=== PATIENT | male | born 1945 | race African-American/Black ===

== ENCOUNTER → 2020-05-06 | Outpatient (CLI) | payer MEDICARE, MEDICAID ==
[2020-05-06 10:16] LABS: Basophils # (auto) 0 10 ^3/uL (0-0.2); Basophils % (auto) 1.1 % (0.0-2.0); Eosinophils # (auto) 0 10 ^3/uL (0-0.8); Hemoglobin 15.3 g/dL (13.5-17.5); Lymphocytes # (auto) 1.2 10 ^3/uL (0.4-5.4); Lymphocytes % (auto) 38.8 % (10.0-50.0); Mean Corpuscular Hemoglobin 31.5 pg (28.0-32.0); Mean Corpuscular Hgb Conc. 33.3 g/dL (32.0-36.0); Mean Corpuscular Volume 94.4 fL (80.0-100.0); Monocytes # (auto) 0.3 10 ^3/uL (0-1.3); Monocytes % (auto) 9.6 % (0.0-12.0); Neutrophils # (auto) 1.5 10 ^3/uL (1.6-8.6); Neutrophils % (auto) 49.5 % (37.0-80.0); Nucleated Red Blood Cells % 0.1 %; Platelet Count (auto) 229 10^3/uL (140-450); Red Blood Cells 4.87 10^6/uL (4.5-5.90); White Blood Cell 3.1 10^3/uL (4.4-10.8)
[2020-05-06 10:28] LABS: Urine Bacteria NONE SEEN /hpf (None Seen); Urine Blood 1+ /uL (Negative); Urine Hyaline Cast FEW /lpf (0 - 2); Urine Mucus FEW (None Seen); Urine Specific Gravity 1.028 (1.001-1.035); Urine WBC 3 /hpf (0 - 3)
[2020-05-06 10:38] LABS: Free T4 (Free Thyroxine) 0.88 ng/dL (0.89-1.76); Prostate Specific Antigen 2.58 ng/mL (0.0-4.0)
[2020-05-06 10:39] LABS: Calcium 9.1 mg/dL (8.5-10.1); Folate (Folic Acid) 12.86 ng/mL (5.38-24)
[2020-05-06 10:45] LABS: BUN/Creatinine Ratio 11.9; Bilirubin, Total 0.6 mg/dL (0.2-1.0); Total Protein 7.5 g/dL (6.4-8.2)
== END | disposition home or self-care (01) ==
LOC: LAB 09:17
PROVIDERS: ATTEND Internal Medicine
DX: Z12.5 Encounter for screening for malignant neoplasm of prostate (principal); I10 Essential (primary) hypertension; R73.03 Prediabetes; M79.10 Myalgia, unspecified site
CPT/HCPCS: 36415; 80053; 80061; 81001; 82306; 82607; 82746; 83036; 84153; 84439; 84443; 85025

== ENCOUNTER → 2020-08-11 | Outpatient (CLI) | payer MEDICARE, MEDICAID | END | disposition home or self-care (01) | LOC: LAB 09:56 | PROVIDERS: ATTEND Student in an Organized Health Care Education/Training Program | DX: E03.9 Hypothyroidism, unspecified (principal) | CPT/HCPCS: 36415; 84439; 84443 ==

== ENCOUNTER → 2020-09-20 | Outpatient (CLI) | payer MEDICARE, MEDICAID ==
[~2020-09-20] VITALS: Ht 157.5 cm; Wt 81.6 kg
[~2020-09-20] MED LIST: ADENOSINE 69 MG in GIVE UN-DILUTED 0 ML IV STA
[2020-09-20 10:35] VITALS: BP 181/93
== END | disposition home or self-care (01) ==
LOC: XY 08:15
PROVIDERS: ATTEND Internal Medicine
DX: R00.1 Bradycardia, unspecified (principal); R60.0 Localized edema; I50.9 Heart failure, unspecified; I50.810 Right heart failure, unspecified
CPT/HCPCS: 93017; J0153

== ENCOUNTER → 2020-11-18 | Outpatient (CLI) | payer MEDICARE, MEDICAID | END | disposition home or self-care (01) | LOC: XYW 11:09 | PROVIDERS: ATTEND Internal Medicine | DX: I08.0 Rheumatic disorders of both mitral and aortic valves (principal); M62.89 Other specified disorders of muscle; I11.9 Hypertensive heart disease without heart failure | CPT/HCPCS: 93306 ==

== ENCOUNTER → 2021-01-13 | Outpatient (CLI) | payer MEDICARE, MEDICAID ==
[~2021-01-13] MED LIST changes: -ADENOSINE 69 MG in GIVE UN-DILUTED 0 ML IV STA; +ALLO100T PO; +AML5T PO; +FLUT1SPR5; +FURO20TA3 PO; +HYDR-4795 PO; +POTA10TA51 PO; +TAMS0.4C36 PO
[2021-01-13 09:10] LABS: Basophils # (auto) 0.1 10 ^3/uL (0-0.2); Eosinophils # (auto) 0 10 ^3/uL (0-0.8); Eosinophils % (auto) 0.5 % (0.0-7.0); Hematocrit 37.8 % (41.0-53.0); Hemoglobin 12.6 g/dL (13.5-17.5); Lymphocytes # (auto) 0.7 10 ^3/uL (0.4-5.4); Lymphocytes % (auto) 25.2 % (10.0-50.0); Mean Corpuscular Hemoglobin 32.2 pg (28.0-32.0); Mean Corpuscular Hgb Conc. 33.3 g/dL (32.0-36.0); Mean Corpuscular Volume 96.5 fL (80.0-100.0); Monocytes # (auto) 0.3 10 ^3/uL (0-1.3); Neutrophils # (auto) 1.7 10 ^3/uL (1.6-8.6); Neutrophils % (auto) 62.3 % (37.0-80.0); Red Blood Cells 3.91 10^6/uL (4.5-5.90); Red Cell Distribution Width 15.5 % (11.8-14.3); White Blood Cell 2.8 10^3/uL (4.4-10.8)
[2021-01-13 09:24] LABS: INR 1.08 (0.9-1.15); Partial Thromboplastin Time 26.7 sec (23.6-33.0)
[2021-01-13 09:25] LABS: Albumin 3.7 g/dL (3.4-5.0); Calcium 8.7 mg/dL (8.5-10.1); Potassium 3.9 mmol/L (3.5-5.1)
[2021-01-13 09:29] LABS: BUN/Creatinine Ratio 20.7; Bilirubin, Total 0.7 mg/dL (0.2-1.0); Total Protein 6.8 g/dL (6.4-8.2)
== END | disposition home or self-care (01) ==
LOC: LAB 08:54
PROVIDERS: ATTEND Internal Medicine
DX: Z01.812 Encounter for preprocedural laboratory examination (principal); I50.9 Heart failure, unspecified
CPT/HCPCS: 36415; 80053; 85025; 85610; 85730

== ENCOUNTER 2021-01-18 07:16 | Day surgery (SDC) | payer MEDICARE, MEDICAID ==
[~2021-01-18] VITALS: Ht 162.6 cm; Wt 95.3 kg
[2021-01-18] MEDS ORDERED: LIDOCAINE 2%HCL (LOCAL ANESTH.) INJ 20ML MDV ONE ×2 (07:33→09:52)
[2021-01-18] MEDS ORDERED: HEPARIN IN NS 1000Units/500mL 0 ML ONE (07:33)
[2021-01-18] MEDS ORDERED: IODIXANOL 320MG/ML 100ML BTL IV ONE (07:33)
[2021-01-18] MEDS ORDERED: fentaNYL CITRATE 100 MCG/2 ML VL ONE ×2 (08:12→09:53)
[2021-01-18] MEDS ORDERED: ANGIOMAX 250 MG VIAL IV ONE (08:12)
[2021-01-18] MEDS ORDERED: MIDAZOLAM HCL 2MG/2ML 2ml VIAL (1mg/ml) ONE ×2 (08:12→09:53)
[2021-01-18] MEDS ORDERED: HEPARIN SODIUM (PORCINE) 5000 UNITS/ML 1ML VIAL ONE (08:13)
[2021-01-18] MEDS ORDERED: SODIUM CHL 0.9% 0 ML ONE (08:13)
[2021-01-18] MEDS ORDERED: VERAPAMIL 2.5MG/ML INJ 2ML VIAL IV ONE (08:13)
[2021-01-18] MEDS ORDERED: NITROGLYCERIN 5MG/ML 10ML VIAL IV ONE (08:28)
[2021-01-18] MEDS ORDERED: ATROPINE SULF 1 MG/10ml SYR ONE (08:53)
[2021-01-18] MEDS ORDERED: VANCOMYCIN 1GM/250ML 250 ML IV ONE (09:50)
[2021-01-18] MEDS ORDERED: VANCOMYCIN HCL 1000 MG VL ONE ×2 (09:52→09:53)
[2021-01-18] MEDS ORDERED: POTA8TAB2 PO (10:01)
[2021-01-18] MEDS ORDERED: HYDROcodone-ACET 5/325MG TAB PO PRN (11:45)
[2021-01-18] MEDS ORDERED: ACETAMINOPHEN 325 MG TAB PO PRN (11:45)
[2021-01-18] MEDS ORDERED: MORPHINE SULFATE INJECTION 2 MG/ML SYRG IV PRN (11:45)
[2021-01-18] MEDS ORDERED: SODIUM CHLORIDE 0.9% 1,000 ML IV SCH (11:45)
[2021-01-18] MEDS ORDERED: NITROGLYCERIN 0.4 MG SL TAB SL PRN (11:45)
[2021-01-18] MEDS ORDERED: HYDROcodone-ACET 7.5/325MG TAB PO PRN (13:00)
[2021-01-18] MEDS ORDERED: TRAM50TA2 PO (15:19)
[2021-01-18] MEDS ORDERED: APIX5TAB4 PO (15:19)
[2021-01-18] MEDS ORDERED: TAMSULOSIN HYDROCHLORIDE 0.4 MG CAP PO SCH (18:00)
[2021-01-18] MEDS ORDERED: APIXABAN 5 MG TAB PO SCH (22:00)
[2021-01-19] MEDS ORDERED: FUROSEMIDE 20 MG TAB PO SCH (07:00)
[2021-01-19] MEDS ORDERED: amLODIPine BESYLATE 5 MG TAB PO SCH (07:00)
[2021-01-19] MEDS ORDERED: POTASSIUM CHLORIDE 8 MEQ TAB PO SCH (07:00)
[2021-01-19] MEDS ORDERED: FLUTICASONE PROP NASAL SPR 0.05 % (50MCG) 16GM SCH (10:00)
[2021-01-19] MEDS ORDERED: ALLOPURINOL 100 MG TAB PO SCH (10:00)
== END 2021-01-18 16:55 | disposition home or self-care (01) ==
LOC: CATH 07:16 → UNDOADMIN 12:15 → TELE 12:15 → CATH 16:55
PROVIDERS: ATTEND Internal Medicine
DX: I44.39 Other atrioventricular block (principal); I49.5 Sick sinus syndrome; I48.19 Other persistent atrial fibrillation; R00.2 Palpitations; I25.10 Atherosclerotic heart disease of native coronary artery without angina pectoris; I10 Essential (primary) hypertension; R68.89 Other general symptoms and signs; Z79.82 Long term (current) use of aspirin; Z20.822 Contact with and (suspected) exposure to COVID-19; Z98.890 Other specified postprocedural states; Z79.899 Other long term (current) drug therapy; Z68.36 Body mass index [BMI] 36.0-36.9, adult
CPT/HCPCS: 33207; 71045; 93005; 93458; 93571; C1786; C1887; C1892; C1894; C1898; J1644; J2250; J3010; J3370; Q9967; U0003; 99152; 99153; J3490

== ENCOUNTER 2021-09-30 12:51 | Emergency (ER) | payer MEDICARE, MEDICAID ==
[~2021-09-30] VITALS: Ht 152.4 cm; Wt 90.7 kg
[~2021-09-30 12:51] MED LIST changes: +APIX5TAB4 PO; -HYDR-4795 PO; -POTA10TA51 PO; +POTA8TAB2 PO; +TRAM50TA2 PO
[2021-09-30] MEDS ORDERED: LIDOCAINE 1% HCL (LOCAL ANESTH.) INJ 20ML MDV ONE (13:35)
[2021-09-30] MEDS ORDERED: TETANUS-DIPTH-ACEL PERTUSSIS 0.5ML SYR Tdap IM ONE (13:45)
[2021-09-30] MEDS ORDERED: DOXYCYCLINE 100 MG TAB/CAP PO ONE (13:45)
[2021-09-30] MEDS ORDERED: LIDOCAINE 1% HCL (LOCAL ANESTH.) INJ 20ML MDV ID ONE (13:45)
[2021-09-30] MEDS ORDERED: NEOMYCIN-BACITRACIN-POLYM 15GM TOP OINT TOP ONE (14:23)
[2021-09-30] MEDS ORDERED: HYDR-4902 PO (16:15)
[2021-09-30] MEDS ORDERED: DOXY-286 PO (16:15)
[2021-09-30] MEDS ORDERED: ACET650T12 PO (16:15)
[2021-09-30 16:20] VITALS: BP 122/80
== END 2021-09-30 16:36 | disposition home or self-care (01) ==
LOC: EDUNIT# 12:51 → ER 12:51 → EDBD 12:51 → ER 16:36
DX: S81.811A Laceration without foreign body, right lower leg, initial encounter (principal); I10 Essential (primary) hypertension; W26.8XXA Contact with other sharp object(s), not elsewhere classified, initial encounter; Y93.89 Activity, other specified; Y92.89 Other specified places as the place of occurrence of the external cause; Y99.8 Other external cause status
CPT/HCPCS: 12002; 90471; 90715; 93971; 99284; J2001

== ENCOUNTER 2022-03-08 20:50 | Inpatient (IN) | payer MEDICARE, MEDICAID ==
[~2022-03-08] VITALS: Ht 172.7 cm; Wt 112.2 kg
[~2022-03-08 20:50] MED LIST changes: +ACET650T12 PO; +DOXY-286 PO; +HYDR-4902 PO
[2022-03-08 23:34] LABS: Basophils # (auto) 0 10 ^3/uL (0-0.2); Eosinophils # (auto) 0 10 ^3/uL (0-0.8); Eosinophils % (auto) 0.6 % (0.0-7.0); Hematocrit 33.5 % (41.0-53.0); Hemoglobin 10.8 g/dL (13.5-17.5); Lymphocytes # (auto) 0.3 10 ^3/uL (0.4-5.4); Lymphocytes % (auto) 9.4 % (10.0-50.0); Mean Corpuscular Hemoglobin 29.4 pg (28.0-32.0); Mean Corpuscular Hgb Conc. 32.3 g/dL (32.0-36.0); Mean Corpuscular Volume 90.8 fL (80.0-100.0); Monocytes # (auto) 0.3 10 ^3/uL (0-1.3); Neutrophils # (auto) 2.8 10 ^3/uL (1.6-8.6); Red Blood Cells 3.68 10^6/uL (4.5-5.90); Red Cell Distribution Width 15.9 % (11.8-14.3); White Blood Cell 3.4 10^3/uL (4.4-10.8)
[2022-03-09 00:32] LABS: BUN/Creatinine Ratio 21.9; Potassium 3.8 mmol/L (3.5-5.1)
[2022-03-09 00:33] LABS: Albumin 2.8 g/dL (3.4-5.0); Bilirubin, Total 0.6 mg/dL (0.2-1.0); Calcium 8.3 mg/dL (8.5-10.1); Total Protein 6.6 g/dL (6.4-8.2)
[2022-03-09] MEDS ORDERED: HYDROmorphone HCL 2 MG/ML VL/or syr IV ONE (05:30)
[2022-03-09] MEDS: cefTRIAXone 1GM/50ML D5W 50 ML IV ONE ×2 (06:11→06:52)
[2022-03-09] MEDS: AZITHROMYCIN 500MG/ 250ML 250 ML IV ONE ×2 (06:11→06:53)
[2022-03-09] MEDS ORDERED: MORPHINE SULFATE INJ 2 MG/ml SYRG IV PRN ×2 (06:15→06:30)
[2022-03-09] MEDS ORDERED: ALBUMIN 25% 100 ML IV ONE (06:15)
[2022-03-09] MEDS ORDERED: hydrALAZINE HCL 20 MG/ML VL IV PRN (06:15)
[2022-03-09] MEDS ORDERED: ONDANSETRON HCL 4 MG/2 ML VIAL IV PRN (06:15)
[2022-03-09] MEDS ORDERED: DOCUSATE SOD 100 MG CAP PO PRN ×2 (06:15→07:30)
[2022-03-09] MEDS ORDERED: ACETAMINOPHEN 325 MG TAB PO PRN (06:15)
[2022-03-09] MEDS ORDERED: HYDROcodone-ACET 5/325MG TAB PO PRN (06:15)
[2022-03-09] MEDS ORDERED: NITROGLYCERIN 0.4 MG SL TAB SL PRN (06:30)
[2022-03-09 09:24] LABS: Basophils # (auto) 0 10 ^3/uL (0-0.2); Basophils % (auto) 1.3 % (0.0-2.0); Eosinophils # (auto) 0 10 ^3/uL (0-0.8); Eosinophils % (auto) 0.9 % (0.0-7.0); Hematocrit 36.4 % (41.0-53.0); Hemoglobin 11.4 g/dL (13.5-17.5); Lymphocytes # (auto) 0.6 10 ^3/uL (0.4-5.4); Lymphocytes % (auto) 16.8 % (10.0-50.0); Mean Corpuscular Hemoglobin 29.2 pg (28.0-32.0); Mean Corpuscular Hgb Conc. 31.2 g/dL (32.0-36.0); Mean Corpuscular Volume 93.6 fL (80.0-100.0); Monocytes # (auto) 0.3 10 ^3/uL (0-1.3); Monocytes % (auto) 9.1 % (0.0-12.0); Neutrophils # (auto) 2.4 10 ^3/uL (1.6-8.6); Neutrophils % (auto) 71.9 % (37.0-80.0); Nucleated Red Blood Cells % 0.1 %; Red Blood Cells 3.89 10^6/uL (4.5-5.90); Red Cell Distribution Width 16.6 % (11.8-14.3); White Blood Cell 3.3 10^3/uL (4.4-10.8)
[2022-03-09 09:45] LABS: Albumin 3.2 g/dL (3.4-5.0); Calcium 8.6 mg/dL (8.5-10.1); INR 1.13 (0.9-1.15); Partial Thromboplastin Time 31.6 sec (24.6-33.4); Potassium 4.1 mmol/L (3.5-5.1)
[2022-03-09 09:49] LABS: BUN/Creatinine Ratio 19.4; Bilirubin, Total 0.8 mg/dL (0.2-1.0); Total Protein 6.6 g/dL (6.4-8.2)
[2022-03-09 10:22] LABS: Urine Bacteria NONE SEEN /hpf (None Seen); Urine Blood Negative /uL (Negative); Urine Specific Gravity 1.031 (1.001-1.035); Urine WBC 1 /hpf (0 - 3)
[2022-03-09] MEDS: APIXABAN 5 MG TAB PO SCH ×2 (10:52→22:05)
[2022-03-09] MEDS: amLODIPine BESYLATE 5 MG TAB PO SCH (10:52)
[2022-03-09] MEDS: FUROSEMIDE 20 MG/2 ML VIAL IV SCH (10:53)
[2022-03-09] MEDS: FAMOTIDINE (10MG/ML) 2ML VL IV SCH ×2 (10:53→22:04)
[2022-03-09] MEDS ORDERED: LACTULOSE 20Gm/30ML SOLN PO PRN (11:15)
[2022-03-09] MEDS: SODIUM CHLOR 0.9% PF (SALINE LOCK) 10ML VIAL/SYR IV SCH ×2 (14:00→22:04)
[2022-03-09] MEDS: TAMSULOSIN HYDROCHLORIDE 0.4 MG CAP PO SCH (18:00)
[2022-03-09 20:15] VITALS: BP 147/76
[2022-03-09 21:04] VITALS: BP 147/76
[2022-03-10 04:10] LABS: Basophils # (auto) 0 10 ^3/uL (0-0.2); Basophils % (auto) 1.1 % (0.0-2.0); Eosinophils # (auto) 0 10 ^3/uL (0-0.8); Eosinophils % (auto) 1.2 % (0.0-7.0); Hematocrit 33.8 % (41.0-53.0); Hemoglobin 10.7 g/dL (13.5-17.5); Lymphocytes # (auto) 0.7 10 ^3/uL (0.4-5.4); Lymphocytes % (auto) 20.3 % (10.0-50.0); Mean Corpuscular Hemoglobin 29.3 pg (28.0-32.0); Mean Corpuscular Hgb Conc. 31.5 g/dL (32.0-36.0); Mean Corpuscular Volume 92.9 fL (80.0-100.0); Monocytes # (auto) 0.4 10 ^3/uL (0-1.3); Monocytes % (auto) 12.7 % (0.0-12.0); Neutrophils # (auto) 2.1 10 ^3/uL (1.6-8.6); Neutrophils % (auto) 64.7 % (37.0-80.0); Nucleated Red Blood Cells % 0.1 %; Red Blood Cells 3.64 10^6/uL (4.5-5.90); Red Cell Distribution Width 16.1 % (11.8-14.3); White Blood Cell 3.3 10^3/uL (4.4-10.8)
[2022-03-10 04:36] LABS: Albumin 2.8 g/dL (3.4-5.0); Calcium 8.2 mg/dL (8.5-10.1); Potassium 4.2 mmol/L (3.5-5.1)
[2022-03-10 04:41] LABS: BUN/Creatinine Ratio 19.1; Bilirubin, Total 0.8 mg/dL (0.2-1.0); Total Protein 5.9 g/dL (6.4-8.2)
[2022-03-10 05:30] VITALS: BP 136/81
[2022-03-10] MEDS: SODIUM CHLOR 0.9% PF (SALINE LOCK) 10ML VIAL/SYR IV SCH ×3 (06:00→22:00)
[2022-03-10 08:30] VITALS: BP 155/84
[2022-03-10] MEDS: POLYETHYLENE GLYCOL 17 GM PWDR PO SCH (10:00)
[2022-03-10] MEDS: amLODIPine BESYLATE 5 MG TAB PO SCH (10:00)
[2022-03-10] MEDS: FUROSEMIDE 20 MG/2 ML VIAL IV SCH (10:00)
[2022-03-10] MEDS: FAMOTIDINE (10MG/ML) 2ML VL IV SCH ×2 (10:00→21:59)
[2022-03-10] MEDS: APIXABAN 5 MG TAB PO SCH ×2 (10:00→22:00)
[2022-03-10] MEDS: HALOPERIDOL 1 MG TAB PO PRN ×2 (11:53→21:02)
[2022-03-10 13:00] VITALS: BP 123/69
[2022-03-10] MEDS ORDERED: HALOPERIDOL LACTATE 5 MG/ML INJ VIAL IM ONE (17:15)
[2022-03-10] MEDS: TAMSULOSIN HYDROCHLORIDE 0.4 MG CAP PO SCH (17:54)
[2022-03-10 20:00] VITALS: BP 150/88
[2022-03-10 22:00] VITALS: BP 150/88
[2022-03-11 04:40] VITALS: BP 146/90
[2022-03-11] MEDS: SODIUM CHLOR 0.9% PF (SALINE LOCK) 10ML VIAL/SYR IV SCH ×3 (06:00→22:25)
[2022-03-11 08:00] VITALS: BP 145/83
[2022-03-11] MEDS: APIXABAN 5 MG TAB PO SCH ×2 (09:54→22:25)
[2022-03-11] MEDS: FAMOTIDINE (10MG/ML) 2ML VL IV SCH ×2 (09:54→22:24)
[2022-03-11] MEDS: FUROSEMIDE 20 MG/2 ML VIAL IV SCH (09:54)
[2022-03-11] MEDS: amLODIPine BESYLATE 5 MG TAB PO SCH (09:55)
[2022-03-11] MEDS: POLYETHYLENE GLYCOL 17 GM PWDR PO SCH (09:55)
[2022-03-11] MEDS: HALOPERIDOL 1 MG TAB PO PRN ×2 (09:58→18:10)
[2022-03-11 12:00] VITALS: BP 146/82
[2022-03-11 16:00] VITALS: BP 142/83
[2022-03-11] MEDS: TAMSULOSIN HYDROCHLORIDE 0.4 MG CAP PO SCH (17:49)
[2022-03-11 20:00] VITALS: BP 129/74
[2022-03-11 22:00] VITALS: BP 129/74
[2022-03-12] MEDS: HALOPERIDOL 1 MG TAB PO PRN (04:58)
[2022-03-12 05:00] VITALS: BP 135/74
[2022-03-12] MEDS: SODIUM CHLOR 0.9% PF (SALINE LOCK) 10ML VIAL/SYR IV SCH ×3 (06:12→22:20)
[2022-03-12 09:00] VITALS: BP 140/87
[2022-03-12] MEDS: amLODIPine BESYLATE 5 MG TAB PO SCH (09:29)
[2022-03-12] MEDS: POLYETHYLENE GLYCOL 17 GM PWDR PO SCH (09:29)
[2022-03-12] MEDS: APIXABAN 5 MG TAB PO SCH ×2 (09:30→22:19)
[2022-03-12] MEDS: FAMOTIDINE (10MG/ML) 2ML VL IV SCH ×2 (09:30→22:19)
[2022-03-12] MEDS: FUROSEMIDE 20 MG/2 ML VIAL IV SCH (09:30)
[2022-03-12] MEDS: TAMSULOSIN HYDROCHLORIDE 0.4 MG CAP PO SCH (17:33)
[2022-03-12] MEDS: Juven Orange Powder PACKET 27.5gm PO SCH (17:34)
[2022-03-12 20:00] VITALS: BP 121/72
[2022-03-13] MEDS: SODIUM CHLOR 0.9% PF (SALINE LOCK) 10ML VIAL/SYR IV SCH ×2 (05:36→14:19)
[2022-03-13] MEDS: Juven Orange Powder PACKET 27.5gm PO SCH (08:00)
[2022-03-13 09:00] VITALS: BP 146/76
[2022-03-13] MEDS: POLYETHYLENE GLYCOL 17 GM PWDR PO SCH (09:52)
[2022-03-13] MEDS: FAMOTIDINE (10MG/ML) 2ML VL IV SCH (09:52)
[2022-03-13] MEDS: FUROSEMIDE 20 MG/2 ML VIAL IV SCH (09:53)
[2022-03-13] MEDS: APIXABAN 5 MG TAB PO SCH (09:53)
[2022-03-13] MEDS: amLODIPine BESYLATE 5 MG TAB PO SCH (09:54)
[2022-03-13] MEDS ORDERED: LACT10SO3 PO (12:58)
[2022-03-13 13:00] VITALS: BP 142/72
[2022-03-13 14:28] VITALS: BP 146/76
[2022-03-13 17:00] VITALS: BP 133/76
== END 2022-03-13 18:00 | disposition home or self-care (01) | DRG 391 ==
LOC: EDBD 20:50 → ER 20:50 → TELE 03-09 06:30 → TELE-CENTR 03-09 20:00
PROVIDERS: ADMIT Nurse Practitioner Family; ATTEND Internal Medicine
PROC: 05H933Z Insertion of Infusion Device into Right Brachial Vein, Percutaneous Approach (ICD-10-PCS; principal; 2022-03-10)
PROC: B54MZZA Ultrasonography of Right Upper Extremity Veins, Guidance (ICD-10-PCS; 2022-03-10)
DX: K59.00 Constipation, unspecified (principal); G93.41 Metabolic encephalopathy; E87.0 Hyperosmolality and hypernatremia; E88.09 Other disorders of plasma-protein metabolism, not elsewhere classified; F03.90 Unspecified dementia, unspecified severity, without behavioral disturbance, psychotic disturbance, mood disturbance, and anxiety; I11.9 Hypertensive heart disease without heart failure; Z20.822 Contact with and (suspected) exposure to COVID-19; I25.10 Atherosclerotic heart disease of native coronary artery without angina pectoris; I25.2 Old myocardial infarction
CPT/HCPCS: 36415; 70450; 71045; 80053; 81001; 83690; 84484; 85025; 85610; 85730; 87426; 93005; 96365; 96375; G0378; J0696; J3490; P9047

== ENCOUNTER 2022-03-24 21:06 | Inpatient (IN) | payer OTHER, MEDICARE, MEDICAID ==
[~2022-03-24] VITALS: Ht 172.7 cm; Wt 89.3 kg
[~2022-03-24 21:06] MED LIST changes: +LACT10SO3 PO
[2022-03-24] MEDS ORDERED: DEXTROSE 50% SYRINGE 50 ML IV ONE (21:22)
[2022-03-24] MEDS ORDERED: DEXTROSE 10% 1,000 ML IV ONE (21:30)
[2022-03-24] MEDS ORDERED: AZITHROMYCIN 500MG/ 250ML 250 ML IV ONE (21:30)
[2022-03-24] MEDS ORDERED: DEXTROSE (50%) 50ML SYRG IV ONE (21:30)
[2022-03-24] MEDS ORDERED: FUROSEMIDE 40 MG/4 ML VIAL IV ONE (21:30)
[2022-03-24] MEDS ORDERED: cefTRIAXone 1GM/50ML D5W 50 ML IV ONE (21:30)
[2022-03-24 22:26] LABS: Urine Bacteria NONE SEEN /hpf (None Seen); Urine Blood TRACE /uL (Negative); Urine Mucus FEW (None Seen); Urine Specific Gravity 1.013 (1.001-1.035); Urine WBC 5 /hpf (0 - 3)
[2022-03-24 22:52] LABS: Alcohol, Urine < 3.0 mg/dL (0-10); Amphetamine Screen, Urine NEGATIVE (NEGATIVE); Barbiturate Scree,Urine NEGATIVE (NEGATIVE); Benzodiazephine Screen, Urine NEGATIVE (NEGATIVE); Cannabinoid Screen, Urine NEGATIVE (NEGATIVE); Cocaine Screen, Urine NEGATIVE (NEGATIVE); Opiate Scree,Urine POSITIVE (NEGATIVE); Phencyclidine Screen, Urine NEGATIVE (NEGATIVE)
[2022-03-24 23:01] LABS: Albumin 2.6 g/dL (3.4-5.0); BUN/Creatinine Ratio 13.2; Calcium 8.4 mg/dL (8.5-10.1); Potassium 4.3 mmol/L (3.5-5.1)
[2022-03-24 23:12] LABS: Bilirubin, Total 1.4 mg/dL (0.2-1.0); Total Protein 6.3 g/dL (6.4-8.2)
[2022-03-24] MEDS ORDERED: HYDROcodone-ACET 5/325MG TAB PO PRN (23:30)
[2022-03-24] MEDS ORDERED: ACETAMINOPHEN 325 MG TAB PO PRN (23:30)
[2022-03-24] MEDS ORDERED: ONDANSETRON HCL 4 MG/2 ML VIAL IV PRN (23:30)
[2022-03-24] MEDS ORDERED: DOCUSATE SOD 100 MG CAP PO PRN (23:30)
[2022-03-24] MEDS ORDERED: hydrALAZINE HCL 20 MG/ML VL IV PRN (23:45)
[2022-03-25 00:33] LABS: Basophils # (auto) 0.1 10 ^3/uL (0-0.2); Basophils % (auto) 1.4 % (0.0-2.0); Eosinophils # (auto) 0.1 10 ^3/uL (0-0.8); Eosinophils % (auto) 2.5 % (0.0-7.0); Hemoglobin 12.3 g/dL (13.5-17.5); Lymphocytes # (auto) 0.4 10 ^3/uL (0.4-5.4); Lymphocytes % (auto) 6.7 % (10.0-50.0); Mean Corpuscular Hemoglobin 30.2 pg (28.0-32.0); Mean Corpuscular Hgb Conc. 33.2 g/dL (32.0-36.0); Monocytes # (auto) 0.4 10 ^3/uL (0-1.3); Monocytes % (auto) 6.9 % (0.0-12.0); Neutrophils # (auto) 4.3 10 ^3/uL (1.6-8.6); Neutrophils % (auto) 82.5 % (37.0-80.0); Nucleated Red Blood Cells % 0.1 %; Red Blood Cells 4.07 10^6/uL (4.5-5.90); Red Cell Distribution Width 15.7 % (11.8-14.3); White Blood Cell 5.3 10^3/uL (4.4-10.8)
[2022-03-25 05:04] LABS: Basophils # (auto) 0 10 ^3/uL (0-0.2); Eosinophils # (auto) 0 10 ^3/uL (0-0.8); Eosinophils % (auto) 0.8 % (0.0-7.0); Hematocrit 37.9 % (41.0-53.0); Hemoglobin 12.5 g/dL (13.5-17.5); Lymphocytes # (auto) 0.5 10 ^3/uL (0.4-5.4); Lymphocytes % (auto) 11.2 % (10.0-50.0); Mean Corpuscular Hemoglobin 29.8 pg (28.0-32.0); Mean Corpuscular Hgb Conc. 33.1 g/dL (32.0-36.0); Mean Corpuscular Volume 90.2 fL (80.0-100.0); Monocytes # (auto) 0.5 10 ^3/uL (0-1.3); Monocytes % (auto) 10.2 % (0.0-12.0); Neutrophils # (auto) 3.8 10 ^3/uL (1.6-8.6); Neutrophils % (auto) 76.8 % (37.0-80.0); Red Blood Cells 4.21 10^6/uL (4.5-5.90); Red Cell Distribution Width 15.6 % (11.8-14.3); White Blood Cell 4.9 10^3/uL (4.4-10.8)
[2022-03-25 05:19] LABS: Albumin 2.5 g/dL (3.4-5.0); BUN/Creatinine Ratio 15.7; Calcium 8.2 mg/dL (8.5-10.1)
[2022-03-25 05:21] LABS: Bilirubin, Total 1.3 mg/dL (0.2-1.0); Total Protein 6.7 g/dL (6.4-8.2)
[2022-03-25] MEDS: SODIUM CHLOR 0.9% PF (SALINE LOCK) 10ML VIAL/SYR IV SCH ×3 (06:01→22:12)
[2022-03-25] MEDS: ACCU-CHEK COMFORT CURVE STRIP VI SCH ×9 (06:36→23:25)
[2022-03-25] MEDS: InsuLIN REG 1unit/0.01ml Soln (100units/ml) SC SCH ×3 (06:36→17:00)
[2022-03-25] MEDS ORDERED: ALBUMIN 25% 100 ML IV ONE (08:15)
[2022-03-25] MEDS: FAMOTIDINE (10MG/ML) 2ML VL IV SCH ×2 (09:53→22:23)
[2022-03-25] MEDS: FUROSEMIDE 40 MG/4 ML VIAL IV SCH (09:53)
[2022-03-25] MEDS: ENOXAPARIN SOD 40 MG/0.4 ML SYRINGE SC SCH (09:53)
[2022-03-25] MEDS: DEXTROSE (50%) 50ML SYRG IV PRN ×3 (11:50→17:45)
[2022-03-25] MEDS: D5W/SOD CHL 0.45% 1,000 ML IV SCH (12:36)
[2022-03-25] MEDS: TAMSULOSIN HYDROCHLORIDE 0.4 MG CAP PO SCH (19:10)
[2022-03-25] MEDS ORDERED: LORazepam 2MG/ML-1ML VIAL IV PRN (19:15)
[2022-03-25 19:51] LABS: Cholesterol 156 mg/dL (< 200)
[2022-03-25 19:54] LABS: HDL Cholesterol 51 mg/dL (40-59); LDL Cholesterol 104 mg/dL (< 100); Triglycerides 72 mg/dL (< 150)
[2022-03-26] MEDS: ACCU-CHEK COMFORT CURVE STRIP VI SCH ×16 (00:30→22:23)
[2022-03-26] MEDS: DEXTROSE (50%) 50ML SYRG IV PRN ×5 (00:31→14:06)
[2022-03-26] MEDS: D5W/SOD CHL 0.45% 1,000 ML IV SCH (03:45)
[2022-03-26] MEDS: SODIUM CHLOR 0.9% PF (SALINE LOCK) 10ML VIAL/SYR IV SCH ×3 (06:09→22:23)
[2022-03-26] MEDS: FAMOTIDINE (10MG/ML) 2ML VL IV SCH ×2 (08:05→22:22)
[2022-03-26] MEDS: ENOXAPARIN SOD 40 MG/0.4 ML SYRINGE SC SCH (08:06)
[2022-03-26 09:03] LABS: Free T4 (Free Thyroxine) 1.17 ng/dL (0.89-1.76)
[2022-03-26 09:04] LABS: Folate (Folic Acid) > 24.00 ng/mL (5.38-24)
[2022-03-26] MEDS ORDERED: D5W/SOD CHL 0.45% 1,000 ML IV SCH (09:45)
[2022-03-26] MEDS: FUROSEMIDE 40 MG/4 ML VIAL IV SCH (10:19)
[2022-03-26 10:40] LABS: Basophils # (auto) 0 10 ^3/uL (0-0.2); Basophils % (auto) 0.9 % (0.0-2.0); Eosinophils # (auto) 0.1 10 ^3/uL (0-0.8); Eosinophils % (auto) 2.2 % (0.0-7.0); Hematocrit 37.6 % (41.0-53.0); Hemoglobin 12.4 g/dL (13.5-17.5); Lymphocytes # (auto) 0.5 10 ^3/uL (0.4-5.4); Lymphocytes % (auto) 15.5 % (10.0-50.0); Mean Corpuscular Hemoglobin 29.7 pg (28.0-32.0); Mean Corpuscular Hgb Conc. 32.9 g/dL (32.0-36.0); Mean Corpuscular Volume 90.2 fL (80.0-100.0); Monocytes # (auto) 0.4 10 ^3/uL (0-1.3); Monocytes % (auto) 10.7 % (0.0-12.0); Neutrophils # (auto) 2.5 10 ^3/uL (1.6-8.6); Neutrophils % (auto) 70.7 % (37.0-80.0); Nucleated Red Blood Cells % 0.1 %; Red Blood Cells 4.17 10^6/uL (4.5-5.90); Red Cell Distribution Width 15.6 % (11.8-14.3); White Blood Cell 3.5 10^3/uL (4.4-10.8)
[2022-03-26 10:57] LABS: Albumin 2.4 g/dL (3.4-5.0); Calcium 8.2 mg/dL (8.5-10.1); Magnesium 2.1 mg/dL (1.6-2.6); Potassium 3.4 mmol/L (3.5-5.1)
[2022-03-26 11:01] LABS: BUN/Creatinine Ratio 16.3; Bilirubin, Total 1.1 mg/dL (0.2-1.0); Total Protein 6.2 g/dL (6.4-8.2)
[2022-03-26] MEDS: DEXTROSE 10% 1,000 ML IV SCH (11:01)
[2022-03-26] MEDS ORDERED: Ensure HIGH Protein Chocolate 8oz Bottle PO SCH (12:00)
[2022-03-26] MEDS ORDERED: POTASSIUM CHLORIDE 40 MEQ, LIDOCAINE 1% (LOCAL ANESTH.) 4 ML in SODIUM CHL 0.9% 250 ML IV ONE (13:00)
[2022-03-26] MEDS: TAMSULOSIN HYDROCHLORIDE 0.4 MG CAP PO SCH (18:00)
[2022-03-26] MEDS: Glucerna Carbsteady SHAKE Stawberry 8oz PO SCH (18:01)
[2022-03-27] MEDS: ACCU-CHEK COMFORT CURVE STRIP VI SCH ×7 (00:26→20:23)
[2022-03-27] MEDS: DEXTROSE 10% 1,000 ML IV SCH ×2 (03:14→11:43)
[2022-03-27] MEDS: SODIUM CHLOR 0.9% PF (SALINE LOCK) 10ML VIAL/SYR IV SCH ×3 (06:02→22:18)
[2022-03-27] MEDS ORDERED: ACCU-CHEK COMFORT CURVE STRIP VI SCH (08:00)
[2022-03-27] MEDS: FUROSEMIDE 40 MG/4 ML VIAL IV SCH (08:21)
[2022-03-27] MEDS: FAMOTIDINE (10MG/ML) 2ML VL IV SCH ×2 (08:21→22:18)
[2022-03-27] MEDS: ENOXAPARIN SOD 40 MG/0.4 ML SYRINGE SC SCH (08:21)
[2022-03-27] MEDS: Glucerna Carbsteady SHAKE Stawberry 8oz PO SCH ×3 (08:22→18:00)
[2022-03-27 08:30] LABS: Basophils # (auto) 0.1 10 ^3/uL (0-0.2); Basophils % (auto) 1.3 % (0.0-2.0); Eosinophils # (auto) 0.1 10 ^3/uL (0-0.8); Eosinophils % (auto) 2.1 % (0.0-7.0); Hematocrit 37.1 % (41.0-53.0); Hemoglobin 12.3 g/dL (13.5-17.5); Lymphocytes # (auto) 0.7 10 ^3/uL (0.4-5.4); Lymphocytes % (auto) 16.6 % (10.0-50.0); Mean Corpuscular Hemoglobin 29.4 pg (28.0-32.0); Mean Corpuscular Hgb Conc. 33.1 g/dL (32.0-36.0); Monocytes # (auto) 0.5 10 ^3/uL (0-1.3); Monocytes % (auto) 11.5 % (0.0-12.0); Neutrophils # (auto) 2.7 10 ^3/uL (1.6-8.6); Neutrophils % (auto) 68.5 % (37.0-80.0); Nucleated Red Blood Cells % 0.1 %; Red Blood Cells 4.18 10^6/uL (4.5-5.90); Red Cell Distribution Width 15.4 % (11.8-14.3)
[2022-03-27 08:44] LABS: Albumin 2.5 g/dL (3.4-5.0); Calcium 8.3 mg/dL (8.5-10.1); Potassium 3.9 mmol/L (3.5-5.1)
[2022-03-27 08:48] LABS: BUN/Creatinine Ratio 16.7; Bilirubin, Total 0.8 mg/dL (0.2-1.0); Total Protein 6.2 g/dL (6.4-8.2)
[2022-03-27] MEDS ORDERED: DEXTROSE (50%) 50ML SYRG IV PRN (12:00)
[2022-03-27] MEDS ORDERED: cefTRIAXone 1GM/50ML D5W 50 ML IV ONE (12:30)
[2022-03-27 13:31] VITALS: BP 113/62
[2022-03-27 16:35] VITALS: BP 107/69
[2022-03-27] MEDS: TAMSULOSIN HYDROCHLORIDE 0.4 MG CAP PO SCH (17:41)
[2022-03-27] MEDS ORDERED: FUROSEMIDE 40 MG/4 ML VIAL IV ONE (18:30)
[2022-03-27 20:00] VITALS: BP 99/58
[2022-03-27 21:40] VITALS: BP 99/58
[2022-03-27] MEDS: CARVEDILOL 3.125 MG TAB PO SCH (22:00)
[2022-03-27] MEDS: APIXABAN 5 MG TAB PO SCH (22:18)
[2022-03-28] MEDS: HALOPERIDOL LACTATE 5 MG/ML INJ VIAL IM PRN ×2 (00:08→21:34)
[2022-03-28] MEDS: ACCU-CHEK COMFORT CURVE STRIP VI SCH ×7 (00:18→23:52)
[2022-03-28 04:56] VITALS: BP 109/58
[2022-03-28] MEDS: SODIUM CHLOR 0.9% PF (SALINE LOCK) 10ML VIAL/SYR IV SCH ×3 (06:07→23:36)
[2022-03-28] MEDS: FUROSEMIDE 40 MG/4 ML VIAL IV SCH ×3 (06:07→23:52)
[2022-03-28 08:00] VITALS: BP 99/58
[2022-03-28 08:23] VITALS: BP 130/60
[2022-03-28] MEDS: Glucerna Carbsteady SHAKE Stawberry 8oz PO SCH ×3 (09:02→19:43)
[2022-03-28] MEDS: cefTRIAXone 1GM/50ML D5W 50 ML IV SCH (09:05)
[2022-03-28] MEDS: FAMOTIDINE (10MG/ML) 2ML VL IV SCH (10:08)
[2022-03-28] MEDS: CARVEDILOL 3.125 MG TAB PO SCH ×2 (10:09→23:51)
[2022-03-28] MEDS: DEXTROSE 10% 1,000 ML IV SCH (10:09)
[2022-03-28] MEDS: APIXABAN 5 MG TAB PO SCH ×2 (10:09→23:35)
[2022-03-28 13:07] VITALS: BP 127/61
[2022-03-28 16:14] VITALS: BP 111/66
[2022-03-28] MEDS: TAMSULOSIN HYDROCHLORIDE 0.4 MG CAP PO SCH (19:38)
[2022-03-28] MEDS: MUPIROCIN 2% OINT 15gm or 22gm FOR MRSA NARES EACHNOSTRI SCH (23:35)
[2022-03-29 04:46] VITALS: BP 110/65
[2022-03-29] MEDS: ACCU-CHEK COMFORT CURVE STRIP VI SCH ×2 (05:00→08:54)
[2022-03-29] MEDS: SODIUM CHLOR 0.9% PF (SALINE LOCK) 10ML VIAL/SYR IV SCH (05:26)
[2022-03-29 06:06] LABS: Basophils # (auto) 0 10 ^3/uL (0-0.2); Basophils % (auto) 1.1 % (0.0-2.0); Eosinophils # (auto) 0.2 10 ^3/uL (0-0.8); Eosinophils % (auto) 5.6 % (0.0-7.0); Hematocrit 33.3 % (41.0-53.0); Hemoglobin 10.8 g/dL (13.5-17.5); Lymphocytes # (auto) 0.8 10 ^3/uL (0.4-5.4); Lymphocytes % (auto) 22.9 % (10.0-50.0); Mean Corpuscular Hemoglobin 28.9 pg (28.0-32.0); Mean Corpuscular Hgb Conc. 32.6 g/dL (32.0-36.0); Mean Corpuscular Volume 88.9 fL (80.0-100.0); Monocytes # (auto) 0.5 10 ^3/uL (0-1.3); Monocytes % (auto) 14.3 % (0.0-12.0); Neutrophils # (auto) 1.9 10 ^3/uL (1.6-8.6); Neutrophils % (auto) 56.1 % (37.0-80.0); Nucleated Red Blood Cells % 0.1 %; Red Blood Cells 3.74 10^6/uL (4.5-5.90); Red Cell Distribution Width 15.4 % (11.8-14.3); White Blood Cell 3.4 10^3/uL (4.4-10.8)
[2022-03-29 06:26] LABS: Calcium 8.1 mg/dL (8.5-10.1); Magnesium 2.2 mg/dL (1.6-2.6); Potassium 3.5 mmol/L (3.5-5.1)
[2022-03-29 06:29] LABS: BUN/Creatinine Ratio 34.8
[2022-03-29] MEDS: cefTRIAXone 1GM/50ML D5W 50 ML IV SCH (08:52)
[2022-03-29] MEDS: APIXABAN 5 MG TAB PO SCH (08:52)
[2022-03-29] MEDS: FUROSEMIDE 40 MG/4 ML VIAL IV SCH (08:53)
[2022-03-29] MEDS: CARVEDILOL 3.125 MG TAB PO SCH (08:53)
[2022-03-29] MEDS: Glucerna Carbsteady SHAKE Stawberry 8oz PO SCH (08:55)
[2022-03-29] MEDS: MUPIROCIN 2% OINT 15gm or 22gm FOR MRSA NARES EACHNOSTRI SCH (08:55)
[2022-03-29 08:57] VITALS: BP 99/68
[2022-03-29 12:40] VITALS: BP 107/57
== END 2022-03-29 15:45 | DRG 917 ==
LOC: EDBD 21:06 → ER 21:12 → TELE 23:32 → TELE-CENTR 03-27 10:45 → TELE-EAST 03-27 15:12
PROVIDERS: ADMIT Nurse Practitioner Family; ATTEND Internal Medicine
PROC: 06HM33Z Insertion of Infusion Device into Right Femoral Vein, Percutaneous Approach (ICD-10-PCS; principal; 2022-03-24)
DX: T40.2X1A Poisoning by other opioids, accidental (unintentional), initial encounter (principal); E43 Unspecified severe protein-calorie malnutrition; G92.8 Other toxic encephalopathy; J18.9 Pneumonia, unspecified organism; I50.43 Acute on chronic combined systolic (congestive) and diastolic (congestive) heart failure; N39.0 Urinary tract infection, site not specified; J91.8 Pleural effusion in other conditions classified elsewhere; E87.1 Hypo-osmolality and hyponatremia; E16.2 Hypoglycemia, unspecified; E88.09 Other disorders of plasma-protein metabolism, not elsewhere classified; Z20.822 Contact with and (suspected) exposure to COVID-19; F02.80 Dementia in other diseases classified elsewhere, unspecified severity, without behavioral disturbance, psychotic disturbance, mood disturbance, and anxiety; G30.9 Alzheimer's disease, unspecified; I11.0 Hypertensive heart disease with heart failure; I25.10 Atherosclerotic heart disease of native coronary artery without angina pectoris; K57.30 Diverticulosis of large intestine without perforation or abscess without bleeding; E78.5 Hyperlipidemia, unspecified; I48.0 Paroxysmal atrial fibrillation; N40.0 Benign prostatic hyperplasia without lower urinary tract symptoms; I25.2 Old myocardial infarction; Z68.25 Body mass index [BMI] 25.0-25.9, adult; Z82.49 Family history of ischemic heart disease and other diseases of the circulatory system; Z95.0 Presence of cardiac pacemaker; Y92.89 Other specified places as the place of occurrence of the external cause
CPT/HCPCS: 36415; 36600; 70450; 71250; 74176; 80048; 80053; 80061; 80307; 81001; 82533; 82607; 82746; 82805; 82962; 83605; 83735; 83880; 84132; 84439; 84443; 84484; 85025; 87040; 87081; 87086; 87088; 87186; 87426; 93005; 93306; 96365; 96367; 96375; 99291; G0378; J0696; J2001; J3490

== ENCOUNTER 2023-12-13 15:37 | Inpatient (IN) | payer MEDICARE, MEDICAID ==
[~2023-12-13] VITALS: Ht 165.1 cm; Wt 82.0 kg
[~2023-12-13 15:37] MED LIST changes: -POTA8TAB2 PO; +POTA8TAB38 PO
[2023-12-13 16:25] LABS: Basophils # (auto) 0 10 ^3/uL (0-0.2); Eosinophils # (auto) 0.1 10 ^3/uL (0-0.8); Eosinophils % (auto) 1.8 % (0.0-7.0); Hematocrit 44.4 % (41.0-53.0); Lymphocytes # (auto) 1.2 10 ^3/uL (0.4-5.4); Lymphocytes % (auto) 33.7 % (10.0-50.0); Mean Corpuscular Hemoglobin 31.1 pg (28.0-32.0); Mean Corpuscular Hgb Conc. 33.9 g/dL (32.0-36.0); Mean Corpuscular Volume 91.7 fL (80.0-100.0); Monocytes # (auto) 0.4 10 ^3/uL (0-1.3); Monocytes % (auto) 10.5 % (0.0-12.0); Neutrophils # (auto) 1.9 10 ^3/uL (1.6-8.6); Nucleated Red Blood Cells % 0.1 %; Red Blood Cells 4.84 10^6/uL (4.5-5.90); Red Cell Distribution Width 14.3 % (11.8-14.3); White Blood Cell 3.7 10^3/uL (4.4-10.8)
[2023-12-13 16:38] LABS: Chloride 110 mmol/L (98-107); Sodium 143 mmol/L (136-145)
[2023-12-13 16:39] LABS: Anion Gap 7 (5-15); Calcium 9.4 mg/dL (8.7-10.4); Carbon Dioxide 26 mmol/L (20-30)
[2023-12-13 16:44] LABS: BUN/Creatinine Ratio 22.2 (10.0-20.0); Blood Urea Nitrogen 28 mg/dL (9-23); Glucose 105 mg/dL (74-106)
[2023-12-13 17:06] VITALS: O2SAT 98
[2023-12-13 18:53] LABS: INR 1.13 (0.9-1.15); Partial Thromboplastin Time 29.1 SEC (24.5-34.5); Prothrombin Time 11.9 sec (9.3-11.8)
[2023-12-13 19:13] LABS: Urine Bacteria None Seen /hpf (None Seen)
[2023-12-13 19:28] LABS: Urine Blood TRACE /uL (Negative); Urine Clarity Clear (Clear); Urine Color Light-Yellow (Yellow); Urine Protein, UAD Negative (Negative); Urine Specific Gravity 1.013 (1.001-1.035); Urine Urobilinogen Normal (Negative); Urine WBC <1 /hpf (0 - 3); Urine pH 5.5 (5.0-9.0)
[2023-12-13] MEDS ORDERED: ONDANSETRON HCL 4 MG/2 ML VIAL IV PRN (20:45)
[2023-12-13] MEDS ORDERED: DOCUSATE SOD 100 MG CAP PO PRN (20:45)
[2023-12-13] MEDS: PANTOPRAZOLE 40 MG/10 ML VIAL INJ IV SCH (22:09)
[2023-12-13] MEDS: LACTATED RINGER'S 1,000 ML IV ONE (22:09)
[2023-12-13] MEDS: SODIUM CHLOR 0.9% PF (SALINE LOCK) 10ML VIAL/SYR IV SCH (22:09)
[2023-12-13] MEDS ORDERED: FLUTICASONE PROP NASAL SPR 0.05 % (50MCG) 16GM PRN (22:12)
[2023-12-14] VITALS (9 sets, daily range): BP systolic 101–122; BP diastolic 67–81; PULSE 69–72; RESP 16–18; TEMP 97.3–98.1; O2SAT 96–100
[2023-12-14] MEDS: amLODIPine BESYLATE 5 MG TAB PO SCH (06:08)
[2023-12-14] MEDS: FUROSEMIDE 20 MG TAB PO SCH (06:08)
[2023-12-14] MEDS: POTASSIUM CHLORIDE 8 MEQ TAB PO SCH (06:08)
[2023-12-14] MEDS: ALLOPURINOL 100 MG TAB PO SCH (13:00)
[2023-12-14] MEDS: TAMSULOSIN HYDROCHLORIDE 0.4 MG CAP PO SCH (18:06)
[2023-12-15] VITALS (8 sets, daily range): BP systolic 92–104; BP diastolic 59–69; PULSE 69–80; RESP 18–20; TEMP 97.5–98; O2SAT 95–100
[2023-12-15 07:05] LABS: Hematocrit 43.4 % (41.0-53.0); Hemoglobin 14.8 g/dL (13.5-17.5)
[2023-12-15 07:32] LABS: Anion Gap 12 (5-15); Carbon Dioxide 17 mmol/L (20-30); Chloride 109 mmol/L (98-107); Potassium 3.8 mmol/L (3.5-5.1); Sodium 138 mmol/L (136-145)
[2023-12-15 07:39] LABS: BUN/Creatinine Ratio 14.4 (10.0-20.0); Blood Urea Nitrogen 13 mg/dL (9-23); Glucose 81 mg/dL (74-106)
[2023-12-15] MEDS: ACETAMINOPHEN 325 MG TAB PO PRN (11:08)
[2023-12-16 01:00] VITALS: BP 103/62; PULSE 72; RESP 18; TEMP 97.5; O2SAT 99
[2023-12-16 05:00] VITALS: BP 108/64; PULSE 76; RESP 18; TEMP 97.6; O2SAT 98
[2023-12-16 08:00] VITALS: RESP 18; O2SAT 99
[2023-12-16 09:00] VITALS: BP 111/61; PULSE 79; RESP 18; TEMP 97.9; O2SAT 98
== END 2023-12-16 11:30 | DRG 377 ==
LOC: EDBD 15:37 → ER 15:37 → OVERFLOW 20:37 → WEST WING 12-14 03:30
PROVIDERS: ADMIT Internal Medicine; ATTEND Nurse Practitioner Acute Care
DX: K62.5 Hemorrhage of anus and rectum (principal); I50.23 Acute on chronic systolic (congestive) heart failure; I13.0 Hypertensive heart and chronic kidney disease with heart failure and stage 1 through stage 4 chronic kidney disease, or unspecified chronic kidney disease; F03.90 Unspecified dementia, unspecified severity, without behavioral disturbance, psychotic disturbance, mood disturbance, and anxiety; I25.10 Atherosclerotic heart disease of native coronary artery without angina pectoris; N18.31 Chronic kidney disease, stage 3a; E66.9 Obesity, unspecified; Z79.899 Other long term (current) drug therapy; Z79.891 Long term (current) use of opiate analgesic; Z82.49 Family history of ischemic heart disease and other diseases of the circulatory system; Z95.0 Presence of cardiac pacemaker; Z79.1 Long term (current) use of non-steroidal anti-inflammatories (NSAID); Z68.30 Body mass index [BMI] 30.0-30.9, adult
CPT/HCPCS: 36415; 74176; 80048; 81001; 82270; 82962; 83036; 84484; 85014; 85018; 85025; 85610; 85730; 96360; G0378; J2470

== ENCOUNTER 2024-11-01 20:49 | Emergency (ER) | payer MEDICARE, MEDICAID ==
[~2024-11-01] VITALS: Ht 177.8 cm; Wt 82.0 kg
[~2024-11-01 20:49] MED LIST changes: -TAMS0.4C36 PO; +TAMS0.4C39 PO
[2024-11-01 21:38] LABS: Alanine Aminotransferase 15 U/L (7-40); Albumin 4.7 g/dL (3.2-4.8); Alkaline Phosphatase 85 U/L (46-116); Anion Gap 10 (5-15); Aspartate Aminotransferase 19 U/L (13-40); BUN/Creatinine Ratio 16.1 (10.0-20.0); Bilirubin, Total 1.1 mg/dL (0.2-1.0); Blood Urea Nitrogen 18 mg/dL (9-23); Carbon Dioxide 29 mmol/L (20-31); Total Protein 7.8 g/dL (5.7-8.2)
--- NOTE | 2024-11-01 21:44 | ED.PDOC ---
History of Present Illness HPI Comments 79 y/o M is BIBA from [facility] for 2x day history of 6/10 abdominal pain, with associated nausea and vomiting. Per EMS, staff of facility called on patient's behalf when he began endorsing on pain when pressing his abdomen in addition to the him being unable to eat anything or take his medications, due to vomiting. Patient has extensive medical history, which includes Alzheimer's dementia, AFib, CAD, CHF, CKD stage 3, DM II, HTN, AL, pacemaker, and hypothyroidism. Vitals were noted to have been within normal limits and stable. Upon arrival to ED and time of assessment, patient refutes on having any pain or associated symptoms and states on feeling fine. Chief Complaint: Abdominal Pain Time Seen by MD: 20:45 Primary Care Provider: MANOJ Reviewed Notes: Nurses Notes, Eyeglass Fitter Notes, Medications, Allergies Allergies: Coded Allergies: NO KNOWN ALLERGIES (Unverified , 01/18/21) Home Meds Active Scripts Lactulose (Lactulose) 10 Gm/15 Ml Marina, 30 ML PO Q6HPRN PRN, #120 ML Prov:LAUREN BLANCHARD MD 03/13/22 Acetaminophen (Acetaminophen Er) 650 Mg Tab, 650 MG PO Q6HPRN PRN for 7 Days, #28 TAB 0 Refills Prov:ARLINE BOTELLO MD 09/30/21 Hydrocodone-Acetaminophen (Hydrocodone Bitartrate/AC 5-325 mg) 1 Tab Tab, 1 TAB PO Q6HPRN PRN for 3 Days, #12 TAB 0 Refills Prov:ARLINE BOTELLO MD 09/30/21 Doxycycline Hyclate (DOXYCYCLINE HYCLATE) 100 Mg Tab, 1 TAB PO BID for 7 Days, #14 TAB 0 Refills Prov:ARLINE BOTELLO MD 09/30/21 Reported Medications Apixaban Base (Eliquis Starter Pack) 5 Mg Tab, 5 MG PO BID for PACEMAKER, #60 01/18/21 Tramadol Hcl (Tramadol Hcl) 50 Mg Tab, 50 MG PO TIDPRN PRN for MODERATE PAIN (4- 6 PAIN SCALE), #90 TAB 01/18/21 Potassium Chloride (Klor-Con 8) 8 Meq Tab, 1 TAB PO QAM for SUPPLEMENT 01/18/21 Tamsulosin Hcl (Tamsulosin Hcl) 0.4 Mg Cap, 1 CAP PO QPM for BPH 01/13/21 Amlodipine Besylate (NORVASC TABLET) 5 Mg Tb, 2 TAB PO QAM for HYPERTENSION 01/13/21 Furosemide (Furosemide) 20 Mg Tab, 1 TAB PO QAM for CHF 01/13/21 Fluticasone Propionate (Nasal) (Flonase Allergy Relief) 50 Mcg/Act Spr, 1 SPR NA DAILYP for ALLERGIES 01/13/21 Allopurinol (Allopurinol) 100 Mg Tab, 1 TAB PO DAILY for GOUT 01/13/21 Information Source: Patient, Emergency Med Personnel Mode of Arrival: EMS Severity: Moderate Timing: Days Duration: Since onset Prehospital treatment: 12 Lead EKG, Accucheck, Telegraph Plant Maintainer Review of Systems: REVIEW OF SYSTEMS: No fever, no chills, or fatigue HEENT: No sore throat, no earache, no congestion, no neck pain. Cardiac: No chest pain. No palpitations. Lungs: No shortness of breath, no cough. GI: No nausea, no vomiting, no diarrhea, no constipation, no abdominal pain : No dysuria, frequency, or urgency. No hematuria. Musculoskeletal: No joint pain , no joint swelling, no extremity edema. Skin: No rash, no itching. Neuro: No headache, no dizziness, no weakness Vital Signs Vital Signs Date Time Temp Pulse Resp B/P (MAP) Pulse Ox O2 Delivery O2 Flow Rate FiO2 11/02/24 06:18 70 18 122/75 (91) 100 11/02/24 02:00 98.7 98.7 11/02/24 01:50 Room Air* 0 21 Physical Exam General: Awake, alert and oriented. No acute distress. Skin: Skin in warm, dry and intact. Appropriate color for ethnicity. HEENT: The head is normocephalic and atraumatic. Conjunctivae are clear without exudates or hemorrhage. Sclera is non-icteric. EOM are intact. No signs of nystagmus. Eyelids are normal in appearance without swelling or lesions. Oral mucosa is pink and moist Neck: The neck is supple with normal range of motion. No JVD. Cardiac: Heart rate and rhythm are normal. No murmurs, gallops, or rubs are auscultated. Respiratory: No signs of respiratory distress. Lung sounds are clear in all lobes bilaterally without rales, rhonchi, or wheezes. Abdominal: Abdomen is soft, non-tender without distention, guarding or rigidity. Bowel sounds are present and normoactive in all four quadrants. Extremities: Upper and lower extremities are atraumatic in appearance without deformity or edema. Neurological: The patient is awake, alert and oriented only to person. Psychiatric: Appropriate mood and affect. Past Medical History PAST MEDICAL HISTORY: AFIB, Anxiety, CAD, CHF, CKF (Stage III), Dementia (Alzheimer's), DM (Type 2), HTN, AL, Thyroid (Hypothyroidism) Past Medical History (Other): Atherosclerotic heart disease of [place] coronary artery without angina pectoris Unilateral inguinal hernia Kidney cyst Cardiomegaly Pneumonia Surgical History: Pacemaker Family History Family History: Reviewed,noncontributory to illness Social History Smoker: Non-Smoker Alcohol: Rarely Drugs: Denies Drug Use Lives In: Home Was a procedure done? Was a procedure done?: No EKG EKG : Pulse Rate (adult): 70 [place]: Normal Cardiac Rhythm: Paced (Ventricularly) Block: None Hypertrophy: None ST: Normal Comments no STEMI Differential Dx Considerations may include: Differential diagnoses considered include: Abdominal aortic aneurysm, AL, esophageal rupture, intestinal obstruction, mesenteric ischemia, perforated viscus or solid organ rupture, CHF with hepatomegaly, pneumonia, abscess, appendicitis, biliary disease, diverticulitis, gastritis, gastroenteritis, hepatitis, hernia, inflammatory bowel disease, pancreatitis, peptic ulcer disease, urinary tract infection, ureteral colic, constipation, GERD, irritable syndrome, abdominal wall pain, nonspecific abdominal pain, herpes zoster, nephrolithiasis. X-Ray, Labs, Meds, VS Vital Signs Date Time Temp Pulse Resp B/P (MAP) Pulse Ox O2 Delivery O2 Flow Rate FiO2 11/02/24 06:18 70 18 122/75 (91) 100 11/02/24 04:00 70 18 131/80 (97) 100 11/02/24 02:00 98.7 70 18 138/94 (109) 100 98.7 11/02/24 01:50 70 21 100 Room Air* 0 21 11/01/24 21:44 70 11/01/24 20:52 98.7 70 18 120/82 (95) 94 98.7 11/01/24 20:49 70 Lab Test 11/02/24 03:36 11/01/24 21:10 Range/Units Urine Color Yellow Yellow Urine Clarity Clear Clear Urine pH 6.0 5.0-9.0 Urine Specific [place] 1.031 1.001-1.035 Urine Protein 1+ H Negative Urine Ketones Trace Negative Urine Blood Trace H Negative /uL Urine Nitrite Negative Negative Urine Bilirubin Negative Negative Urine Urobilinogen Normal Negative mg/dL Urine Leukocyte Esterase Negative Negative /uL Urine RBC 7 0 - 3 /hpf Urine Microscopic WBC 1 0-3 /HPF Urine Squamous Epithelial Cells None seen <5 /hpf Urine Bacteria None seen None Seen /hpf Urine Hyaline Casts Few 0 - 2 /lpf Urine Mucus Few None Seen Urine Glucose Normal Normal mg/dL White Blood Count 5.0 4.4-10.8 10^3/uL Red Blood Count 4.83 4.5-5.90 10^6/uL Hemoglobin 15.0 13.5-17.5 g/dL Hematocrit 45.2 41.0-53.0 % Mean Corpuscular Volume 93.5 80.0-100.0 fL Mean Corpuscular Hemoglobin 31.0 28.0-32.0 pg Mean Corpuscular Hemoglobin Concent 33.1 32.0-36.0 g/dL Red Cell Distribution Width 14.8 H 11.8-14.3 % Platelet Count 179 140-450 10^3/uL Mean Platelet Volume 8.6 6.9-10.8 fL Neutrophils (%) (Auto) 80.5 H 37.0-80.0 % Lymphocytes (%) (Auto) 13.0 10.0-50.0 % Monocytes (%) (Auto) 6.4 0.0-12.0 % Eosinophils (%) (Auto) 0.0 0.0-7.0 % Basophils (%) (Auto) 0.1 0.0-2.0 % Neutrophils # (Auto) 4.1 1.6-8.6 10 ^3/uL Lymphocytes # (Auto) 0.7 0.4-5.4 10 ^3/uL Monocytes # (Auto) 0.3 0-1.3 10 ^3/uL Eosinophils # (Auto) 0 0-0.8 10 ^3/uL Basophils # (Auto) 0 0-0.2 10 ^3/uL Nucleated Red Blood Cells 0.0 % Sodium Level 147 H 136-145 mmol/L Potassium Level 5.0 3.5-5.1 mmol/L Chloride Level 108 H 98-107 mmol/L Carbon Dioxide Level 29 20-31 mmol/L Anion Gap 10 5-15 Blood Urea Nitrogen 18 9-23 mg/dL Creatinine 1.12 0.700-1.30 mg/dL Glomerular Filtration Rate Calc 66 >90 mL/min BUN/Creatinine Ratio 16.1 10.0-20.0 Serum Glucose 131 H 74-106 mg/dL Calcium Level 10.5 H 8.7-10.4 mg/dL Total Bilirubin 1.1 H 0.2-1.0 mg/dL Aspartate Amino Transferase (AST) 19 13-40 U/L Alanine Aminotransferase (ALT) 15 7-40 U/L Alkaline Phosphatase 85 46-116 U/L Total Protein 7.8 5.7-8.2 g/dL Albumin 4.7 3.2-4.8 g/dL Time of 1ST Reevaluation: 04:10 Reevaluation 1ST: Unchanged Patient Education/Counseling: Other (Patient has dementia) Family Education/Counseling: No Family Present Departure 1 Departure Time of Disposition: 04:10 Impression: Primary Impression: Abdominal pain Disposition: 01 HOME / SELF CARE / HOMELESS Condition: Stable Additional Instructions: ED DISCHARGE INSTRUCTIONS Instructions: Please read all instructions provided in this packet carefully. Although you have been discharged from the Emergency Department, this does not mean that you have a "clean bill of health". No definitive diagnosis for your symptoms has been made today. It is possible that you are in the process of developing a serious illness. This is why you must return to the ED without fail if any new or worsening symptoms (especially if your symptoms include chest pain, trouble breathing, abdominal pain, fever, headache, confusion, trouble seeing, or trouble walking) It is also very important that you see a primary care doctor within the next 3-5 days to follow up. If you are unable to get an appointment, return to the ED for re-evaluation. Comments 79-year-old male referred from for abdominal pain. During the ED observation patient has no abdominal tenderness, no complaints of abdominal pain or other complaints. Labs reviewed. Patient felt stable for discharge home to follow up with primary care provider. Extensive evaluation was performed in attempt to identify or rule out: (See differential diagnosis section) The following tests were ordered, and results were reviewed by me and discussed with patient: (See diagnostic results section) The following test were independently interpreted by me: EKG I reviewed and agreed with the following test results read by other providers: N/A I reviewed the following notes from the pt's past medical encounters: December 13, 2023 encounter for GI bleed Additional information was gathered from interviewing the following independent historians: EMS personnel Discussion of management or test interpretation with external physician/other qualified health critical care technician: N/A Decision regarding hospitalization or escalation of hospital level of care: Risks and benefits of admission for further treatment of patient's condition was considered however due to patient's stable condition patient will be discharged to follow up closely or return to care for worsening of condition or inability to follow up. Critical Care Note Critical Care Time?: No Stability Stability form required: No Heart Score Heart Score: Heart Score Response (Comments) Value History N/A 0 EKG N/A 0 Age N/A 0 Risk Factors N/A 0 Troponin N/A 0 Total 0 I personally scribed for JOHN FREDERICK MD ([email or web address]) on 11/01/24 at 21:44. Electronically submitted by Agustín Calle ([email or web address]). I personally scribed for JOHN FREDERICK MD ([email or web address]) on 11/01/24 at 21:45. Electronically submitted by Agustín Calle ([email or web address]). JOHN FREDERICK MD Nov 01, 2024 21:44
[2024-11-01 21:51] LABS: Calcium 10.5 mg/dL (8.7-10.4); Chloride 108 mmol/L (98-107); Glucose 131 mg/dL (74-106); Sodium 147 mmol/L (136-145)
[2024-11-01 23:16] LABS: Basophils # (auto) 0 10 ^3/uL (0-0.2); Basophils % (auto) 0.1 % (0.0-2.0); Eosinophils # (auto) 0 10 ^3/uL (0-0.8); Hematocrit 45.2 % (41.0-53.0); Lymphocytes # (auto) 0.7 10 ^3/uL (0.4-5.4); Mean Corpuscular Hgb Conc. 33.1 g/dL (32.0-36.0); Mean Corpuscular Volume 93.5 fL (80.0-100.0); Monocytes # (auto) 0.3 10 ^3/uL (0-1.3); Monocytes % (auto) 6.4 % (0.0-12.0); Neutrophils # (auto) 4.1 10 ^3/uL (1.6-8.6); Neutrophils % (auto) 80.5 % (37.0-80.0); Platelet Count (auto) 179 10^3/uL (140-450); Red Blood Cells 4.83 10^6/uL (4.5-5.90); Red Cell Distribution Width 14.8 % (11.8-14.3)
[2024-11-02 01:50] VITALS: PULSE 70; RESP 21; O2SAT 100
[2024-11-02 02:00] VITALS: TEMP 98.7
[2024-11-02 03:36] LABS: Urine Bacteria None Seen /hpf (None Seen)
[2024-11-02 03:51] LABS: Urine Blood TRACE /uL (Negative); Urine Clarity Clear (Clear); Urine Color Yellow (Yellow); Urine Hyaline Cast FEW /lpf (0 - 2); Urine Mucus FEW (None Seen); Urine Protein, UAD 1+ (Negative); Urine Specific Gravity 1.031 (1.001-1.035); Urine Squamous Epithelial Cell None Seen /hpf (<5); Urine Urobilinogen Normal (Negative); Urine WBC 1 /HPF (0-3)
[2024-11-02 06:18] VITALS: BP 122/75; PULSE 70; RESP 18; O2SAT 100
--- NOTE | 2024-11-02 06:41 | ECG ---
[facility] Test Date: 2024-11-01 Test Time: 20:44:42 Pat Name: LEXIE KLINE Department: ED Room: Gender: M Grinding Machine Tender: : 1945 Requested By: EMERGENCY EMERGENCY Order Number: [id number] Reading MD: Kalia Zaidi Measurements Intervals [place] Rate: 70 P: 0 FL: 166 QRS: 257 QRSD: 202 T: 74 QT: 500 QTc: 540 Interpretive Statements Ventricular-paced rhythm No further analysis attempted due to paced rhythm Electronically Signed On 11-04-2024 20:56:13 PDT by Kalia Zaidi Please click the below link to view image of tracing.
== END 2024-11-02 06:40 | disposition home or self-care (01) ==
LOC: EDBD 20:49 → ER 20:49 → EDUNIT# 20:49 → ER 11-02 06:35
DX: R10.9 Unspecified abdominal pain (principal); R11.2 Nausea with vomiting, unspecified; F02.80 Dementia in other diseases classified elsewhere, unspecified severity, without behavioral disturbance, psychotic disturbance, mood disturbance, and anxiety; G30.9 Alzheimer's disease, unspecified; I13.0 Hypertensive heart and chronic kidney disease with heart failure and stage 1 through stage 4 chronic kidney disease, or unspecified chronic kidney disease; I50.9 Heart failure, unspecified; N18.30 Chronic kidney disease, stage 3 unspecified; E11.22 Type 2 diabetes mellitus with diabetic chronic kidney disease; I48.91 Unspecified atrial fibrillation; I25.2 Old myocardial infarction; I25.10 Atherosclerotic heart disease of native coronary artery without angina pectoris; E03.9 Hypothyroidism, unspecified; Z79.01 Long term (current) use of anticoagulants; Z79.899 Other long term (current) drug therapy; Z95.0 Presence of cardiac pacemaker
CPT/HCPCS: 36415; 80053; 81001; 85025; 93005

== ENCOUNTER 2024-12-07 15:36 | Inpatient (IN) | payer MEDICARE, MEDICAID ==
[~2024-12-07] VITALS: Ht 188 cm; Wt 81.6 kg
--- NOTE | 2024-12-07 16:26 | ED.PDOC ---
History of Present Illness HPI Comments 79-year-old male brought in by ambulance with unknown prior surgical or medical history due from the patient having aloc. And was picked up at nose with stated by EMS and was informed by the nurses the Dr. Hoffmann telling them to send the patient to the your due from having an enlarged prostate. Dr. Mendieta called Dr. Hoffmann asking for more information, for which Dr. Hoffmann responded that the nurses at the facility [facility] and that the patient was ordered as an out patient. Chief Complaint: Urinary Time Seen by MD: 16:10 Primary Care Provider: MANOJ Reviewed Notes: Nurses Notes, Medications, Allergies Allergies: Coded Allergies: NO KNOWN ALLERGIES (Unverified , 01/18/21) Home Meds Active Scripts Lactulose (Lactulose) 10 Gm/15 Ml Marina, 30 ML PO Q6HPRN PRN, #120 ML Prov:LAUREN BLANCHARD MD 03/13/22 Acetaminophen (Acetaminophen Er) 650 Mg Tab, 650 MG PO Q6HPRN PRN for 7 Days, #28 TAB 0 Refills Prov:ARLINE BOTELLO MD 09/30/21 Hydrocodone-Acetaminophen (Hydrocodone Bitartrate/AC 5-325 mg) 1 Tab Tab, 1 TAB PO Q6HPRN PRN for 3 Days, #12 TAB 0 Refills Prov:ARLINE BOTELLO MD 09/30/21 Doxycycline Hyclate (DOXYCYCLINE HYCLATE) 100 Mg Tab, 1 TAB PO BID for 7 Days, #14 TAB 0 Refills Prov:ARLINE BOTELLO MD 09/30/21 Reported Medications Apixaban Base (Eliquis Starter Pack) 5 Mg Tab, 5 MG PO BID for PACEMAKER, #60 01/18/21 Tramadol Hcl (Tramadol Hcl) 50 Mg Tab, 50 MG PO TIDPRN PRN for MODERATE PAIN (4- 6 PAIN SCALE), #90 TAB 01/18/21 Potassium Chloride (Klor-Con 8) 8 Meq Tab, 1 TAB PO QAM for SUPPLEMENT 01/18/21 Tamsulosin Hcl (Tamsulosin Hcl) 0.4 Mg Cap, 1 CAP PO QPM for BPH 01/13/21 Amlodipine Besylate (NORVASC TABLET) 5 Mg Tb, 2 TAB PO QAM for HYPERTENSION 01/13/21 Furosemide (Furosemide) 20 Mg Tab, 1 TAB PO QAM for CHF 01/13/21 Fluticasone Propionate (Nasal) (Flonase Allergy Relief) 50 Mcg/Act Spr, 1 SPR NA DAILYP for ALLERGIES 01/13/21 Allopurinol (Allopurinol) 100 Mg Tab, 1 TAB PO DAILY for GOUT 01/13/21 Information Source: Emergency Med Personnel Mode of Arrival: EMS Severity: Moderate Timing: Came on: Gradually Duration: Since onset Prehospital treatment: None Past Medical History PAST MEDICAL HISTORY: Pt Confused Surgical History: Pt Confused Family History Family History: Pt Confused Social History Smoker: Pt Confused Alcohol: Pt Confused Drugs: Pt Confused Lives In: Pt Confused Unable to Obtain due to: Altered Mental Status All Other Systems: Reviewed and Negative Physical Exam General Appearance: No Apparent Distress, Normal HEENT: Normal ENT Inspection, Pharynx Normal, TMs Normal Neck: Full Range of Motion, Non-Tender, Normal, Normal Inspection Respiratory: Chest Non-Tender, Lungs Clear, No Accessory Muscle Use, No Respiratory Distress, Normal Breath Sounds Cardiovascular: No Edema, No JVD, No Murmur, No Gallop, Normal Peripheral Pulses, Regular Rate/Rhythm Breast Exam: Deferred Gastrointestinal: No Organomegaly, Non Tender, No Pulsatile Mass, Normal Bowel Sounds, Soft Genitalia: Deferred Pelvic: Deferred Rectal: Deferred Extremities: No calf tenderness, Normal capillary refill, Normal inspection, Normal range of motion, Non-tender, No pedal edema Musculoskeletal : Apperance: Normal Neurologic: Alert, clam shucking machine tender II-XII nml as Tested, No Motor Deficits, Normal Affect, Normal Mood, No Sensory Deficits Cerebellar Function: Normal Reflexes: Normal Skin: Dry, Normal Color, Warm Lymphatic: No Adenopathy Was a procedure done? Was a procedure done?: No Differential Dx Considerations may include: CVA, UTI, urinary retention, dementia, Alzheimer's X-Ray, Labs, Meds, VS Vital Signs Date Time Temp Pulse Resp B/P (MAP) Pulse Ox O2 Delivery O2 Flow Rate FiO2 12/07/24 16:33 Room Air* 0 21 12/07/24 16:31 98.1 76 18 99/61 (74) 99 98.1 12/07/24 16:24 98.1 109 15 99/61 (74) 97 98.1 Lab Test 12/07/24 16:38 12/07/24 16:29 Range/Units White Blood Count 3.5 L 4.4-10.8 10^3/uL Red Blood Count 4.57 4.5-5.90 10^6/uL Hemoglobin 14.2 13.5-17.5 g/dL Hematocrit 42.5 41.0-53.0 % Mean Corpuscular Volume 93.0 80.0-100.0 fL Mean Corpuscular Hemoglobin 31.0 28.0-32.0 pg Mean Corpuscular Hemoglobin Concent 33.3 32.0-36.0 g/dL Red Cell Distribution Width 14.5 H 11.8-14.3 % Platelet Count 224 140-450 10^3/uL Mean Platelet Volume 8.0 6.9-10.8 fL Neutrophils (%) (Auto) 67.7 37.0-80.0 % Lymphocytes (%) (Auto) 25.0 10.0-50.0 % Monocytes (%) (Auto) 5.0 0.0-12.0 % Eosinophils (%) (Auto) 1.0 0.0-7.0 % Basophils (%) (Auto) 1.3 0.0-2.0 % Neutrophils # (Auto) 2.4 1.6-8.6 10 ^3/uL Lymphocytes # (Auto) 0.9 0.4-5.4 10 ^3/uL Monocytes # (Auto) 0.2 0-1.3 10 ^3/uL Eosinophils # (Auto) 0 0-0.8 10 ^3/uL Basophils # (Auto) 0 0-0.2 10 ^3/uL Nucleated Red Blood Cells 0.2 % Sodium Level 143 136-145 mmol/L Potassium Level 4.4 3.5-5.1 mmol/L Chloride Level 108 H 98-107 mmol/L Carbon Dioxide Level 28 20-31 mmol/L Anion Gap 7 5-15 Blood Urea Nitrogen Pending Creatinine Pending Glomerular Filtration Rate Calc Pending BUN/Creatinine Ratio Pending Serum Glucose Pending Calcium Level 9.0 8.7-10.4 mg/dL Urine Color Light-yellow Yellow Urine Clarity Clear Clear Urine pH 5.0 5.0-9.0 Urine Specific [place] 1.016 1.001-1.035 Urine Protein Trace H Negative Urine Ketones Negative Negative Urine Blood 2+ H Negative /uL Urine Nitrite Negative Negative Urine Bilirubin Negative Negative Urine Urobilinogen Normal Negative mg/dL Urine Leukocyte Esterase 2+ Negative /uL Urine RBC 18 0 - 3 /hpf Urine Microscopic WBC 11 H 0-3 /HPF Urine Squamous Epithelial Cells Few <5 /hpf Urine Bacteria Few H None Seen /hpf Urine Hyaline Casts Few 0 - 2 /lpf Urine Mucus Few None Seen Urine Glucose Normal Normal mg/dL X-Ray, Labs, Meds, VS Comment Imaging: X-rays and CT scans were reviewed and interpreted by this provider, imaging shows no fractures and no pathological disease. Pending radiology review. Laboratory: Labs reviewed and interpreted by this provider. Suspected possible urinary tract infection, patient be given Rocephin 1 g Patient will be admitted for urinary tract infection Patient will be admitted for gravely disabled Patient will be admitted for altered level of consciousness /metabolic encephalopathy Patient has prior medical visits reviewed. Med reconciliation performed Vital signs reviewed Time of 1ST Reevaluation: 16:40 Reevaluation 1ST: Unchanged Patient Education/Counseling: Other (Patient's altered) Family Education/Counseling: No Family Present SEPSIS Sepsis Screen Physician Orders Basic Metabolic Panel (12/07/24 16:10) Head Without Contrast (12/07/24 16:10) Vital Signs Date Time Temp Pulse Resp B/P (MAP) Pulse Ox O2 Delivery O2 Flow Rate FiO2 12/07/24 16:33 Room Air* 0 21 12/07/24 16:31 98.1 76 18 99/61 (74) 99 98.1 12/07/24 16:24 98.1 109 15 99/61 (74) 97 98.1 Laboratory Tests Test 12/07/24 16:38 White Blood Count 3.5 10^3/uL (4.4-10.8) L Departure 1 Departure Time of Disposition: 17:46 Impression: Primary Impression: Altered mental status Qualified Codes: R41.0 - Disorientation, unspecified Additional Impressions: Metabolic encephalopathy Urinary tract infection Qualified Codes: N30.01 - Acute cystitis with hematuria Gravely disabled Disposition: ADMITTED INPATIENT Condition: Stable Critical Care Note Critical Care Time?: No Stability Stability form required: No Heart Score Heart Score: Heart Score Response (Comments) Value History N/A 0 EKG N/A 0 Age N/A 0 Risk Factors N/A 0 Troponin N/A 0 Total 0 I personally scribed for ROMA MENDIETA ([email or web address]) on 12/07/24 at 16:26. Electronically submitted by Fili Mauro ([email or web address]). ROMA MENDIETA [facility] Dec 07, 2024 16:26
--- NOTE | 2024-12-07 16:41 | DVH ---
CT brain without contrast CLINICAL INDICATION: altered Comparison: 03/09/2022 FINDINGS: The study was performed in a multidetector scanner. This study performed taking axial image s from the skull base up to the vertex. Both brain and bone windows are photographed. Dose lowering techniques have been used including automated exposure control and adjustment of mA and /or KV according to patient size. There is intraparenchymal hemorrhage or edema. No extra-axial hemorrhage. There is no hydrocephalus or midline shift Low-density areas in the periventricular white matter Cortical sulcal markings prominent. No fractures on bone windows. There is mucosal thickening in the left ethmoid sinus air cells. IMPRESSION: 1. Compared to old exam no acute intracranial pathology. There is atrophy with periventricular leuko encephalopathy. Computed Tomographic Radiation Dosimetry Report: Total CTDI vol = 64 mGy Total DLP = 1129 mGy-cm All CT scans at this medical facility are performed using dose modulation techniques as appropriate to a performed exam including the following: Automated exposure control was utilized; adjustment of the MA and/or KvP according to patient size; and use of iterative reconstruction technique.
[2024-12-07 16:57] LABS: Hematocrit 42.5 % (41.0-53.0); Hemoglobin 14.2 g/dL (13.5-17.5); Mean Corpuscular Hemoglobin 31.0 pg (28.0-32.0); Mean Corpuscular Volume 93.0 fL (80.0-100.0); Nucleated Red Blood Cells % 0.2 %
[2024-12-07 17:02] LABS: Urine Protein, UAD TRACE (Negative)
[2024-12-07 17:06] LABS: Potassium 4.4 mmol/L (3.5-5.1); Sodium 143 mmol/L (136-145)
[2024-12-07 17:07] LABS: Anion Gap 7 (5-15); Carbon Dioxide 28 mmol/L (20-31)
[2024-12-07 17:08] LABS: Calcium 9.0 mg/dL (8.7-10.4); Chloride 108 mmol/L (98-107)
[2024-12-07 17:13] LABS: BUN/Creatinine Ratio 18.9 (10.0-20.0); Blood Urea Nitrogen 23 mg/dL (9-23)
[2024-12-07 17:55] LABS: Glucose 122 mg/dL (74-106)
[2024-12-07] MEDS: cefTRIAXone SOD 1,000 MG VL IM ONE (18:20)
[2024-12-07 19:35] VITALS: O2SAT 95
[2024-12-07] MEDS ORDERED: ONDANSETRON HCL 4 MG/2 ML VIAL IV PRN (19:45)
[2024-12-07] MEDS ORDERED: ACETAMINOPHEN 325 MG TAB PO PRN (19:45)
[2024-12-07 20:39] LABS: Lactic Acid w/Reflex 3.1 mmol/L (0.4-2.0)
--- NOTE | 2024-12-07 21:47 | DVHHP2 ---
History of Present Illness Reason for Visit: Altered mental status History of Present Illness 79-year-old male presents for evaluation of altered mental status. Patient resides at [facility] where he was noted to be progressively more altered. Patient does have a history of dementia. No unilateral weakness noted. Patient is not answering questions he is alert. No other history could be obtained at the moment. Past Medical History CHF, CAD, dementia, diabetes mellitus Past Surgical History Pacemaker Family History Noncontributory Smoke: No ALCOHOL: none Drugs: None Lives: [place]-Way Review of Systems Review of Systems Review of systems can not be completed due to the patient's altered mental status. Allergies: Coded Allergies: NO KNOWN ALLERGIES (Unverified , 01/18/21) Medications Current Medications Medications Dose Ordered Sig/Júnior Route Start Time Stop Time Status Last Admin Dose Admin Ondansetron HCl 4 mg Q4HP PRN IV 12/07/24 19:45 Enoxaparin Sodium 40 mg DAILY SC 12/08/24 10:00 Acetaminophen 650 mg Q6HP PRN PO 12/07/24 19:45 Ceftriaxone Sodium 50 ml @ 100 mls/hr DAILY@09 IV 12/08/24 09:00 Exam Vital Signs Vital Signs Date Time Temp Pulse Resp B/P (MAP) Pulse Ox O2 Delivery O2 Flow Rate FiO2 12/07/24 21:00 98.6 72 10 100/56 (71) 100 98.6 12/07/24 19:35 Room Air* 0 21 Exam Gen: 79-year-old male in mild distress, lethargic Skin: Warm, dry, normal color and texture, no rash. HEENT: Normocephalic atraumatic, mucous membranes moist and pink. Neck: Cervical and supraclavicular nodes normal without enlargement, trachea is midline, thyroid gland is normal without masses. Pulmonary: Clear to auscultation and percussion bilaterally. Cardiac: Regular rate and rhythm. No murmur Abdomen: Soft, nontender, nondistended, bowel sounds present all 4 quadrants, no guarding, no rigidity, no organomegaly. Extremities: No cyanosis, clubbing, no edema Neuro: Cranial nerves II through XII grossly intact, normal affect and speech, no focal motor deficits. Labs/Xrays ORDERING PHYSICIAN: ROMA MENDIETA GTA PROCEDURE(s): HWOCT - HEAD WITHOUT CONTRAST REASON: altered ORDER NUMBER(s): [id number], ACCESSION NUMBER(s): [id number] CT brain without contrast CLINICAL INDICATION: altered Comparison: 03/09/2022 FINDINGS: The study was performed in a multidetector scanner. This study performed taking axial images from the skull base up to the vertex. Both brain a nd bone windows are photographed. Dose lowering techniques have been used including automated exposure control and adjustment of mA and/or KV according to patient size. There is intraparenchymal hemorrhage or edema. No extra-axial hemorrhage. There is no hydrocephalus or midline shift Low-density areas in the periventricular white matter Cortical sulcal markings prominent. No fractures on bone windows. There is mucosal thickening in the left ethmoid sinus air cells. IMPRESSION: 1. Compared to old exam no acute intracranial pathology. 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 Computed Tomographic Radiation Dosimetry Report: Total CTDI vol = 64 mGy Total DLP = 1129 mGy-cm All CT scans at this medical facility are performed using dose modulation techniques as appropriate to a performed exam including the following: Automated exposure control was utilized; adjustment of the MA and/or KvP according to patient size; and use of iterative reconstruction technique. Labs Test 12/07/24 20:03 12/07/24 16:38 12/07/24 16:29 Range/Units Lactic Acid Level 3.1 *H 0.4-2.0 mmol/L White Blood Count 3.5 L 4.4-10.8 10^3/uL Red Blood Count 4.57 4.5-5.90 10^6/uL Hemoglobin 14.2 13.5-17.5 g/dL Hematocrit 42.5 41.0-53.0 % Mean Corpuscular Volume 93.0 80.0-100.0 fL Mean Corpuscular Hemoglobin 31.0 28.0-32.0 pg Mean Corpuscular Hemoglobin Concent 33.3 32.0-36.0 g/dL Red Cell Distribution Width 14.5 H 11.8-14.3 % Platelet Count 224 140-450 10^3/uL Mean Platelet Volume 8.0 6.9-10.8 fL Neutrophils (%) (Auto) 67.7 37.0-80.0 % Lymphocytes (%) (Auto) 25.0 10.0-50.0 % Monocytes (%) (Auto) 5.0 0.0-12.0 % Eosinophils (%) (Auto) 1.0 0.0-7.0 % Basophils (%) (Auto) 1.3 0.0-2.0 % Neutrophils # (Auto) 2.4 1.6-8.6 10 ^3/uL Lymphocytes # (Auto) 0.9 0.4-5.4 10 ^3/uL Monocytes # (Auto) 0.2 0-1.3 10 ^3/uL Eosinophils # (Auto) 0 0-0.8 10 ^3/uL Basophils # (Auto) 0 0-0.2 10 ^3/uL Nucleated Red Blood Cells 0.2 % Sodium Level 143 136-145 mmol/L Potassium Level 4.4 3.5-5.1 mmol/L Chloride Level 108 H 98-107 mmol/L Carbon Dioxide Level 28 20-31 mmol/L Anion Gap 7 5-15 Blood Urea Nitrogen 23 9-23 mg/dL Creatinine 1.22 0.700-1.30 mg/dL Glomerular Filtration Rate Calc 60 >90 mL/min BUN/Creatinine Ratio 18.9 10.0-20.0 Serum Glucose 122 H 74-106 mg/dL Calcium Level 9.0 8.7-10.4 mg/dL Urine Color Light-yellow Yellow Urine Clarity Clear Clear Urine pH 5.0 5.0-9.0 Urine Specific [place] 1.016 1.001-1.035 Urine Protein Trace H Negative Urine Ketones Negative Negative Urine Blood 2+ H Negative /uL Urine Nitrite Negative Negative Urine Bilirubin Negative Negative Urine Urobilinogen Normal Negative mg/dL Urine Leukocyte Esterase 2+ Negative /uL Urine RBC 18 0 - 3 /hpf Urine Microscopic WBC 11 H 0-3 /HPF Urine Squamous Epithelial Cells Few <5 /hpf Urine Bacteria Few H None Seen /hpf Urine Hyaline Casts Few 0 - 2 /lpf Urine Mucus Few None Seen Urine Glucose Normal Normal mg/dL SEPSIS Sepsis Screen Date sepsis recognized/suspect: Dec 07, 2024 Time Sepsis recognized/suspect: 1929 Recent Procedure: No On Antibiotic Therapy: No Respiratory Rate >20: No Heart Rate >90: No Temp<36 C (96.8 F) or >38.3 C: No SBP <90 or MAP <65 mmHG: No New Acute Mental Status Change: No Is the patient on CPAP, BIPAP,: No Physician Orders Head Without Contrast (12/07/24 16:10) Basic Metabolic Panel (12/08/24 04:00) Admit (12/07/24 19:45) Ondansetron Hcl (Zofran) (12/07/24 19:45) Enoxaparin Sodium (Lovenox) (12/08/24 10:00) Complete Blood Count (12/08/24 04:00) Cardiac Diet-2gna,Lofat,Lochol (12/08/24 Breakfast) Condition: Stable (12/07/24 19:45) Acetaminophen Tablet (Tylenol Tablet) (12/07/24 19:45) Bedrest With Bathroom Privileg (12/07/24 19:45) Ceftriaxone 1gm/50ml D5w (Rocephin) (12/08/24 09:00) Urine Bacterial Culture (12/07/24 19:45) Sodium Chloride 0.9% (12/07/24 21:45) Vital Signs Date Time Temp Pulse Resp B/P (MAP) Pulse Ox O2 Delivery O2 Flow Rate FiO2 12/07/24 21:00 98.6 72 10 100/56 (71) 100 98.6 12/07/24 19:35 95 Room Air* 0 21 12/07/24 19:00 75 10 97/63 (74) 100 12/07/24 18:00 70 10 100/63 (75) 99 12/07/24 16:33 Room Air* 0 21 12/07/24 16:31 98.1 76 18 99/61 (74) 99 98.1 12/07/24 16:24 98.1 109 15 99/61 (74) 97 98.1 Laboratory Tests Test 12/07/24 16:38 12/07/24 20:03 White Blood Count 3.5 10^3/uL (4.4-10.8) L Lactic Acid Level 3.1 mmol/L (0.4-2.0) *H Medications Medications Dose Ordered Sig/Júnior Route Start Time Stop Time Status Last Admin Dose Admin Ceftriaxone Sodium 1,000 mg ONCE ONCE IM 12/07/24 18:00 12/07/24 18:01 DC 12/07/24 18:20 1,000 MG Assessment/Plan Assessment/Plan Assessment Metabolic encephalopathy Dementia UTI Plan Admit the patient to [facility] to the hospitalist Rocephin Maintenance IV fluids Urine bacterial culture pending Continue treatment per orders. Plan discussed with: Other My Orders Orders - CHUCKIE PEÑA Procedure Category Date Status Time Basic Metabolic Panel LAB 12/08/24 Verified 04:00 Admit ADMIT 12/07/24 Transmitted 19:45 Ondansetron Hcl PHA 12/07/24 In Process (Zofran) 19:45 Enoxaparin Sodium PHA 12/08/24 In Process (Lovenox) 10:00 Complete Blood Count LAB 12/08/24 Verified 04:00 Cardiac DIET 12/08/24 Transmitted Diet-2gna,Lofat,Lochol Breakfast Condition: Stable CECILIO 12/07/24 In Process 19:45 Acetaminophen Tablet PHA 12/07/24 In Process (Tylenol Tablet) 19:45 Bedrest With Bathroom CECILIO 12/07/24 In Process Privileg 19:45 Ceftriaxone 1gm/50ml PHA 12/08/24 In Process D5w (Rocephin) 09:00 Urine Bacterial KARLA 12/07/24 In Process Culture 19:45 Sodium Chloride 0.9% PHA 12/07/24 Logged 21:45 Date of Service: Dec 07, 2024 Billing Provider: CHUCKIE PEÑA Common Visit Codes: [id number] INP/OBS CARE (HIGH) CHUCKIE PEÑA Dec 07, 2024 21:47
[2024-12-07] MEDS: SODIUM CHLORIDE 0.9% 1,000 ML IV ONE (22:59)
[2024-12-08 04:16] LABS: Hematocrit 44.6 % (41.0-53.0); Hemoglobin 14.2 g/dL (13.5-17.5); Mean Corpuscular Hemoglobin 31.2 pg (28.0-32.0); Mean Corpuscular Volume 97.8 fL (80.0-100.0)
[2024-12-08 04:54] LABS: Potassium 4.2 mmol/L (3.5-5.1); Sodium 141 mmol/L (136-145)
[2024-12-08 04:55] LABS: Anion Gap 9 (5-15); Carbon Dioxide 21 mmol/L (20-31)
[2024-12-08 05:00] LABS: BUN/Creatinine Ratio 14.4 (10.0-20.0); Blood Urea Nitrogen 15 mg/dL (9-23)
[2024-12-08 05:08] LABS: Total Cells Counted 100.0 (100)
[2024-12-08 05:09] LABS: Calcium 8.6 mg/dL (8.7-10.4); Chloride 111 mmol/L (98-107); Glucose 113 mg/dL (74-106)
[2024-12-08 07:30] VITALS: PULSE 79; RESP 19; O2SAT 99
[2024-12-08] MEDS: cefTRIAXone 1GM/50ML D5W 50 ML IV SCH (09:06)
[2024-12-08] MEDS: ENOXAPARIN SOD 40 MG/0.4 ML SYRINGE SC SCH (10:04)
--- NOTE | 2024-12-08 13:19 | DVHPN2 ---
Progress Note Date Seen: Dec 08, 2024 Medical Necessity Reason Pt with a Central, PICC or Fol: No Subjective Patient reports: No new complaints Review of Systems: HEENT:Normal, CVS:Normal, RESPIRATORY:Normal, GI:Normal, :Normal, MSK:Normal, NEURO:Normal Objective vital signs Vital Sign Date Time Temp Pulse Resp B/P (MAP) Pulse Ox O2 Delivery O2 Flow Rate FiO2 12/08/24 12:00 98.0 72 14 97/67 (77) 99 98.0 12/08/24 07:49 Room Air* 0 21 Total Intake and Output 12/07/24 12/07/24 12/08/24 15:00 23:00 07:00 Intake Total 800 ml Balance 800 ml medications Current Medications Medications Dose Ordered Sig/Júnior Route Start Time Stop Time Status Last Admin Dose Admin Ondansetron HCl 4 mg Q4HP PRN IV 12/07/24 19:45 Enoxaparin Sodium 40 mg DAILY SC 12/08/24 10:00 12/08/24 10:04 40 MG Acetaminophen 650 mg Q6HP PRN PO 12/07/24 19:45 Ceftriaxone Sodium 50 ml @ 100 mls/hr DAILY@09 IV 12/08/24 09:00 12/08/24 09:07 100 MLS/HR Allopurinol 100 mg DAILY PO 12/09/24 10:00 UNV Examination: GENERAL:Normal, HEENT:Normal, NECK:Normal, LUNGS:Normal, CVS:Normal, ABDOMEN:Normal, MSK:Normal, SKIN:Normal, NEURO:Normal, :Normal laboratory and microbiology Laboratory Tests 12/08/24 03:33 Test 12/08/24 03:33 Range/Units Serum Glucose 113 H 74-106 mg/dL Microbiology Date/Time Source Procedure Growth Status 12/07/24 16:29 Voided Urine Urine Culture - Preliminary Resulted Problem List/Assessment/Plan Problem List/Assessment/Plan #1 ?sepsis with uti: iv rocephin, usg #2 bph #3 dementia #4 s/p pacer #5 chronic systolic heart failure #6 htn #7 gout #8 encephalopathy ?metabolic advance care planning- full code-time spent 19 mins Plan discussed with: Patient My Orders My Orders Orders - CHUCKIE LAINEZ MD Procedure Category Date Status Time Allopurinol Tablet PHA 12/09/24 Transmitted (Zyloprim Tablet) 10:00 Tamsulosin PHA 12/08/24 Transmitted Hydrochloride (Flomax) 18:00 Echo 2d Mode Cardiac US 12/08/24 Transmitted DOP 13:11 Complete Blood Count LAB 12/09/24 Verified 06:00 Comprehensive LAB 12/09/24 Verified Metabolic Panel 06:00 Chest Portable XY 12/08/24 Transmitted 13:11 Date of Service: Dec 08, 2024 Billing Provider: CHUCKIE LAINEZ MD Common Visit Codes: [id number] INP/OBS CARE(HIGH) Secondary Visit Codes: [id number] CARE PLAN 30 MINUTES CHUCKIE LAINEZ MD Dec 08, 2024 13:19
--- NOTE | 2024-12-08 14:11 | DVH ---
EXAM: XY CHEST PORTABLE Indication: CHF, SOB Technique: Single frontal view of the chest was obtained Comparison: EKG on DOS: 03/24/22, CHEST PORTABLE on DOS: 03/09/22, CXRP on DOS: 03/09/22, EKG on DOS: 03/08/22 FINDINGS: Lines and Tubes: Cardiac pacemaker projects over left chest wall. Lungs: No focal consolidation. Pulmonary vascular congestion. Pleura: No effusion. No pneumothorax. Cardiomediastinal contours: Cardiomegaly. Atherosclerotic vascular calcifications of the thoracic ao rta are noted. Bones: No acute osseous abnormality. IMPRESSION: Cardiomegaly with pulmonary vascular congestion.
[2024-12-08] MEDS: TAMSULOSIN HYDROCHLORIDE 0.4 MG CAP PO SCH (18:00)
[2024-12-08 18:03] VITALS: BP 91/64; PULSE 56; RESP 18; TEMP 97.6; O2SAT 99
[2024-12-08 20:00] VITALS: PULSE 72; RESP 17; O2SAT 97
[2024-12-08 20:04] VITALS: BP 91/64; PULSE 56; RESP 18; TEMP 97.6; O2SAT 99
[2024-12-08 21:00] VITALS: BP 99/64; PULSE 54; RESP 18; TEMP 97; O2SAT 97
[2024-12-09 01:00] VITALS: BP 97/69; PULSE 68; RESP 18; TEMP 97.8; O2SAT 98
--- NOTE | 2024-12-09 01:20 | DVHSR ---
APPROVED REPORT EXAM: Two-dimensional and M-mode echocardiogram with Doppler and color Doppler. Blood Pressure: 97/67 mmHg INDICATION CHF RISK FACTORS Obesity: Height: 6'2, Weight: 178 DIMENSIONS LVDd5.8 (3.8-5.7cm)LA (2D)5.5 (1.9-4.0cm)Aortic Root3.5 (2.0-3.7cm) LVDs4.9 (2.5-4.0cm)LA (MM) (1.9-4.0cm)Aortic Cusp Exc1.3 (1.5-2.0cm) EF (%) 30.0 (55-70%)Rt. Atrium4.6 (1.9-4.0cm)Asc. Aorta cm IVSd1.1 (0.7-1.1cm)RV (D)3.8 (1.8-2.4cm) PWd1.3 (0.7-1.1cm) Mitral Valve MitralMitral Stenosis E wave1.09m/sMV Mean GR.1mmHg A wave0.01m/sMV Peak GR.83mmHg E/A [id number] MVAcm2 DECEL [id number] 1/2 Timems Aortic Valve Aortic ValveAortic Stenosis V10.86m/Celso Mean GR.11mmHg V22.12m/Celso Peak GR.18mmHg LVOT Diameter2.2 (1.8-2.4cm)Doppler AVA1.54cm2 Pulmonic Valve V21.21m/s Tricuspid Valve TR Velocity2.82m/s [id number] Conclusion DILATED ALL CARDIAC CHAMBERS MAJOR LV SYSTOLIC DYSFUNCTION LV EF IS ONLY 20% AND IS REMARKABLY REDUCED DYSKINESIS OF IVS AND MODERATELY DILATED RV RVSP IS 40 MM OF HG AND IS HIGH COMBINED RV FAILURE SEVERE MR SIGNIFICANTLY DILATED LA AND RA NO EFFUSION
[2024-12-09 05:00] VITALS: BP 102/68; PULSE 69; RESP 18; TEMP 97.9; O2SAT 98
[2024-12-09 07:44] LABS: Alanine Aminotransferase 12 U/L (7-40); Alkaline Phosphatase 73 U/L (46-116); Anion Gap 12 (5-15); BUN/Creatinine Ratio 18.3 (10.0-20.0); Blood Urea Nitrogen 21 mg/dL (9-23); Calcium 10.2 mg/dL (8.7-10.4); Carbon Dioxide 23 mmol/L (20-31); Glucose 84 mg/dL (74-106); Hematocrit 44.3 % (41.0-53.0); Hemoglobin 14.6 g/dL (13.5-17.5); Mean Corpuscular Hemoglobin 31.4 pg (28.0-32.0); Mean Corpuscular Volume 95.2 fL (80.0-100.0); Nucleated Red Blood Cells % 0.1 %; Potassium 4.7 mmol/L (3.5-5.1); Sodium 144 mmol/L (136-145); Total Protein 7.1 g/dL (5.7-8.2)
[2024-12-09 07:45] LABS: Albumin 4.3 g/dL (3.2-4.8)
[2024-12-09 07:46] LABS: Bilirubin, Total 0.7 mg/dL (0.2-1.0)
[2024-12-09 07:51] LABS: Chloride 109 mmol/L (98-107)
[2024-12-09 08:50] VITALS: BP 92/65; PULSE 70; RESP 20; TEMP 98.6; O2SAT 100
[2024-12-09] MEDS: ALLOPURINOL 100 MG TAB PO SCH (09:29)
--- NOTE | 2024-12-09 10:27 | DVHPN2 ---
Progress Note Date Seen: Dec 09, 2024 Medical Necessity Reason Pt with a Central, PICC or Fol: No Subjective Patient reports: No new complaints Review of Systems: HEENT:Normal, CVS:Normal, RESPIRATORY:Normal, GI:Normal, :Normal, MSK:Normal, NEURO:Normal Objective vital signs Vital Sign Date Time Temp Pulse Resp B/P (MAP) Pulse Ox O2 Delivery O2 Flow Rate FiO2 12/09/24 08:50 98.6 70 20 92/65 (74) 100 98.6 12/08/24 20:00 Room Air* 0 21 Total Intake and Output 12/08/24 12/08/24 12/09/24 15:00 23:00 07:00 Intake Total 50 ml 150 ml Output Total 701 ml Balance 50 ml -551 ml medications Current Medications Medications Dose Ordered Sig/Júnior Route Start Time Stop Time Status Last Admin Dose Admin Ondansetron HCl 4 mg Q4HP PRN IV 12/07/24 19:45 Enoxaparin Sodium 40 mg DAILY SC 12/08/24 10:00 12/09/24 09:30 40 MG Acetaminophen 650 mg Q6HP PRN PO 12/07/24 19:45 Ceftriaxone Sodium 50 ml @ 100 mls/hr DAILY@09 IV 12/08/24 09:00 12/09/24 09:30 100 MLS/HR Allopurinol 100 mg DAILY PO 12/09/24 10:00 12/09/24 09:29 100 MG Tamsulosin HCl 0.4 mg QPM PO 12/08/24 18:00 Examination: GENERAL:Normal, HEENT:Normal, NECK:Normal, LUNGS:Normal, CVS:Normal, ABDOMEN:Normal, MSK:Normal, SKIN:Normal, NEURO:Normal, :Normal laboratory and microbiology Laboratory Tests 12/09/24 06:17 Test 12/09/24 06:17 Range/Units Serum Glucose 84 74-106 mg/dL Microbiology Date/Time Source Procedure Growth Status 12/07/24 23:35 Blood Blood Culture - Preliminary NO GROWTH AFTER 24 HOURS OF INCUBATION. Resulted 12/07/24 16:29 Voided Urine Urine Culture - Preliminary Resulted Problem List/Assessment/Plan Problem List/Assessment/Plan #1 ?sepsis with uti: iv rocephin, usg #2 bph #3 dementia #4 s/p pacer #5 chronic systolic heart failure #6 htn #7 gout #8 encephalopathy ?metabolic advance care planning- full code-time spent 19 mins Plan discussed with: Patient My Orders My Orders Orders - CHUCKIE LAINEZ MD Procedure Category Date Status Time Allopurinol Tablet PHA 12/09/24 In Process (Zyloprim Tablet) 10:00 Tamsulosin PHA 12/08/24 In Process Hydrochloride (Flomax) 18:00 Echo 2d Mode Cardiac US 12/08/24 Resulted DOP 13:11 Chest Portable XY 12/08/24 Resulted 13:11 Initiate Vte CECILIO 12/09/24 In Process Prophylaxis 01:17 Date of Service: Dec 09, 2024 Billing Provider: CHUCKIE LAINEZ MD Common Visit Codes: [id number] INP/OBS CARE(HIGH) CHUCKIE LAINEZ MD Dec 09, 2024 10:27
[2024-12-09 13:20] VITALS: BP 111/53; PULSE 68; RESP 20; TEMP 98.3; O2SAT 94
[2024-12-09 17:47] VITALS: BP 106/63; PULSE 50; RESP 20; TEMP 98.6; O2SAT 95
[2024-12-09 21:00] VITALS: BP 90/56; PULSE 79; RESP 18; TEMP 97.1; O2SAT 100
[2024-12-10 01:00] VITALS: BP 113/59; PULSE 40; RESP 18; TEMP 97; O2SAT 99
[2024-12-10 05:01] VITALS: BP 111/75; PULSE 66; RESP 16; TEMP 97.9; O2SAT 97
[2024-12-10 08:00] VITALS: PULSE 80; O2SAT 98
[2024-12-10 09:00] VITALS: BP 111/67; PULSE 71; RESP 20; TEMP 98.5; O2SAT 97
--- NOTE | 2024-12-10 09:08 | DVHDS2 ---
Discharge Summary Date of Admission Dec 07, 2024 at 19:45 Date of Discharge: Dec 10, 2024 Labs/Diagnostic Data: Laboratory Results Test 12/09/24 06:17 12/08/24 03:33 12/07/24 21:59 12/07/24 16:29 White Blood Count 4.1 10^3/uL (4.4-10.8) Red Blood Count 4.65 10^6/uL (4.5-5.90) Hemoglobin 14.6 g/dL (13.5-17.5) Hematocrit 44.3 % (41.0-53.0) Mean Corpuscular Volume 95.2 fL (80.0-100.0) Mean Corpuscular Hemoglobin 31.4 pg (28.0-32.0) Mean Corpuscular Hemoglobin Concent 32.9 g/dL (32.0-36.0) Red Cell Distribution Width 15.2 % (11.8-14.3) Platelet Count 216 10^3/uL (140-450) Mean Platelet Volume 8.3 fL (6.9-10.8) Neutrophils (%) (Auto) 46.3 % (37.0-80.0) Lymphocytes (%) (Auto) 42.6 % (10.0-50.0) Monocytes (%) (Auto) 8.7 % (0.0-12.0) Eosinophils (%) (Auto) 1.6 % (0.0-7.0) Basophils (%) (Auto) 0.8 % (0.0-2.0) Neutrophils # (Auto) 1.9 10 ^3/uL (1.6-8.6) Lymphocytes # (Auto) 1.7 10 ^3/uL (0.4-5.4) Monocytes # (Auto) 0.4 10 ^3/uL (0-1.3) Eosinophils # (Auto) 0.1 10 ^3/uL (0-0.8) Basophils # (Auto) 0 10 ^3/uL (0-0.2) Nucleated Red Blood Cells 0.1 % Sodium Level 144 mmol/L (136-145) Potassium Level 4.7 mmol/L (3.5-5.1) Chloride Level 109 mmol/L (98-107) Carbon Dioxide Level 23 mmol/L (20-31) Anion Gap 12 (5-15) Blood Urea Nitrogen 21 mg/dL (9-23) Creatinine 1.15 mg/dL (0.700-1.30) Glomerular Filtration Rate Calc 64 mL/min (>90) BUN/Creatinine Ratio 18.3 (10.0-20.0) Serum Glucose 84 mg/dL (74-106) Calcium Level 10.2 mg/dL (8.7-10.4) Total Bilirubin 0.7 mg/dL (0.2-1.0) Aspartate Amino Transferase (AST) 21 U/L (13-40) Alanine Aminotransferase (ALT) 12 U/L (7-40) Alkaline Phosphatase 73 U/L (46-116) Total Protein 7.1 g/dL (5.7-8.2) Albumin 4.3 g/dL (3.2-4.8) Differential Total Cells Counted 100.0 (100) Neutrophils % (Manual) 59 (37.0-80.0) Band Neutrophils % (Manual) 2 Lymphocytes % (Manual) 30 (10.0-50.0) Monocytes % (Manual) 7 (0-12) Eosinophils % (Manual) 2 (0-7) Basophils % (Manual) 0 (0.0-2.0) Metamyelocytes % (manual) 0 Myelocytes % (Manual) 0 Promyelocytes % (Manual) 0 Blast Cells % (Manual) 0 Reactive Lymphocytes 0 Platelet Estimate Adequate Lactic Acid Level 0.9 mmol/L (0.4-2.0) Urine Color Light-yellow (Yellow) Urine Clarity Clear (Clear) Urine pH 5.0 (5.0-9.0) Urine Specific [place] 1.016 (1.001-1.035) Urine Protein Trace (Negative) Urine Ketones Negative (Negative) Urine Blood 2+ /uL (Negative) Urine Nitrite Negative (Negative) Urine Bilirubin Negative (Negative) Urine Urobilinogen Normal mg/dL (Negative) Urine Leukocyte Esterase 2+ /uL (Negative) Urine RBC 18 /hpf (0 - 3) Urine Microscopic WBC 11 /HPF (0-3) Urine Squamous Epithelial Cells Few /hpf (<5) Urine Bacteria Few /hpf (None Seen) Urine Hyaline Casts Few /lpf (0 - 2) Urine Mucus Few (None Seen) Urine Glucose Normal mg/dL (Normal) Other Laboratory Tests 12/09/24 06:17 Brief Hx & Hospital Course: SEE DICTATED NOTE Condition at Discharge: Fair Final Diagnosis/Problems List UTI Discharge Disposition: Residential Facility Discharge Instruct/Medications Diet: Cardiac 2g Na,low cholest Activity: No Restrictions, As Tolerated Follow Up/Referral: FU WITH DR ARANDA Medications: PER MAR Scheduled Allopurinol (Allopurinol), 1 TAB PO DAILY, (Reported) Amlodipine Besylate (Norvasc Tablet), 2 TAB PO QAM, (Reported) Apixaban Base (Eliquis Starter Pack), 5 MG PO BID, (Reported) Doxycycline Hyclate (Doxycycline Hyclate), 1 TAB PO BID Fluticasone Propionate (Nasal) (Flonase Allergy Relief), 1 SPR NA DAILYP, (Reported) Furosemide (Furosemide), 1 TAB PO QAM, (Reported) Potassium Chloride (Klor-Con 8), 1 TAB PO QAM, (Reported) Tamsulosin Hcl (Tamsulosin Hcl), 1 CAP PO QPM, (Reported) Scheduled PRN Acetaminophen (Acetaminophen Er), 650 MG PO Q6HPRN PRN Hydrocodone-Acetaminophen (Hydrocodone Bitartrate/AC 5-325 mg), 1 TAB PO Q6HPRN PRN Lactulose (Lactulose), 30 ML PO Q6HPRN PRN Tramadol Hcl (Tramadol Hcl), 50 MG PO TIDPRN PRN for MODERATE PAIN (4-6 PAIN SCALE), (Reported) Discharge Statement: "Patient was advised to return to the ER or call 911 if any headaches, dizziness, shortness of breath, chest pain, abdominal pain, bleeding, fevers, or worsening of medical condition. Patient was counseled about treatment plan, medications, possible side effects, patientverbalized understanding. All questions were answered to the best of my ability. This discharge took greater then 30 minutes in planning, reviewing documentation, counseling the patient, and discussing with other team members." ASSESSMENT ASSESSMENT Assessment UTI Date of Service: Dec 10, 2024 Billing Provider: CHUCKIE LAINEZ MD Common Visit Codes: [id number] DISCH DAY >30min CHUCKIE LAINEZ MD Dec 10, 2024 09:08
--- NOTE | 2024-12-10 09:40 | DVHDS ---
DATE OF DISCHARGE: 12/10/2024 HISTORY OF PRESENT ILLNESS: The patient is an 79-year-old gentleman who is admitted with altered mental status and has a history of dementia, congestive heart failure, and a previous pacemaker. HOSPITAL COURSE: The patient had a head CT that showed no acute intracranial pathology. Chest x-ray showed cardiomegaly with pulmonary venous congestion. The patient had evidence of UTI and was treated with intravenous antibiotics. Blood cultures and urine cultures have been negative. Lactate was mildly elevated at 3.1. The patient is now doing well and will be discharged back to [facility]. Echocardiogram done showed ejection fraction of 20%. The patient will be on medications as per med reconciliation. He will follow up with in 1 week. FINAL DIAGNOSES: * Questionable sepsis with UTI. * Metabolic encephalopathy. * BPH. * Dementia. * Chronic systolic heart failure. * History of pacemaker. * Hypertension. * Gout. Time spent in discharge planning and review of plan with the patient and nursing was 38 minutes. MD ROBERT Alston/ELANA TID: [id number] RECEIPT: [id number]
[2024-12-10 13:00] VITALS: BP 95/59; PULSE 72; RESP 18; TEMP 98.1; O2SAT 97
== END 2024-12-10 15:35 | DRG 871 ==
LOC: EDBD 15:36 → ER 15:36 → OVERFLOW 19:45 → EAST 12-08 04:05 → OVERFLOW 12-08 04:24 → CENTRAL 12-08 17:57
PROVIDERS: ADMIT Internal Medicine; ATTEND Internal Medicine
DX: A41.9 Sepsis, unspecified organism (principal); G93.41 Metabolic encephalopathy; I50.22 Chronic systolic (congestive) heart failure; N39.0 Urinary tract infection, site not specified; I11.0 Hypertensive heart disease with heart failure; E11.9 Type 2 diabetes mellitus without complications; F03.90 Unspecified dementia, unspecified severity, without behavioral disturbance, psychotic disturbance, mood disturbance, and anxiety; N40.0 Benign prostatic hyperplasia without lower urinary tract symptoms; M10.9 Gout, unspecified; I25.10 Atherosclerotic heart disease of native coronary artery without angina pectoris; F17.200 Nicotine dependence, unspecified, uncomplicated; Z95.0 Presence of cardiac pacemaker
CPT/HCPCS: 36415; 70450; 71045; 80048; 80053; 81001; 83605; 85007; 85025; 85027; 87040; 87086; 93306; G0378; J0696

== ENCOUNTER 2024-12-27 09:40 | Inpatient (IN) | payer MEDICARE, MEDICAID ==
[~2024-12-27] VITALS: Ht 177.8 cm; Wt 81.8 kg
[~2024-12-27 09:40] MED LIST changes: +AMLO1TAB23 PO; +APIX5TAB PO; +DONE5TAB80 PO
--- NOTE | 2024-12-27 09:56 | ED.PDOC ---
History of Present Illness HPI Comments 79-year-old male brought by paramedics from [facility] because he is having problem urinating. He has been having problem urinating for the past three days. Generalized body pains. History of prostate hypertension. Denies nausea vomiting diarrhea. Denies chest pain. He does not ambulate. Denies any other symptoms. Chief Complaint: Urinary Time Seen by MD: 09:49 Primary Care Provider: MANOJ Reviewed Notes: Nurses Notes, Medications, Allergies Allergies: Coded Allergies: NO KNOWN ALLERGIES (Unverified , 01/18/21) Home Meds Active Scripts Lactulose (Lactulose) 10 Gm/15 Ml Marina, 30 ML PO Q6HPRN PRN, #120 ML Prov:LAUREN BLANCHARD MD 03/13/22 Acetaminophen (Acetaminophen Er) 650 Mg Tab, 650 MG PO Q6HPRN PRN for 7 Days, #28 TAB 0 Refills Prov:ARLINE BOTELLO MD 09/30/21 Hydrocodone-Acetaminophen (Hydrocodone Bitartrate/AC 5-325 mg) 1 Tab Tab, 1 TAB PO Q6HPRN PRN for 3 Days, #12 TAB 0 Refills Prov:ARLINE BOTELLO MD 09/30/21 Doxycycline Hyclate (DOXYCYCLINE HYCLATE) 100 Mg Tab, 1 TAB PO BID for 7 Days, #14 TAB 0 Refills Prov:ARLINE BOTELLO MD 09/30/21 Reported Medications Apixaban Base (Eliquis Starter Pack) 5 Mg Tab, 5 MG PO BID for PACEMAKER, #60 01/18/21 Tramadol Hcl (Tramadol Hcl) 50 Mg Tab, 50 MG PO TIDPRN PRN for MODERATE PAIN (4- 6 PAIN SCALE), #90 TAB 01/18/21 Potassium Chloride (Klor-Con 8) 8 Meq Tab, 1 TAB PO QAM for SUPPLEMENT 01/18/21 Tamsulosin Hcl (Tamsulosin Hcl) 0.4 Mg Cap, 1 CAP PO QPM for BPH 01/13/21 Amlodipine Besylate (NORVASC TABLET) 5 Mg Tb, 2 TAB PO QAM for HYPERTENSION 01/13/21 Furosemide (Furosemide) 20 Mg Tab, 1 TAB PO QAM for CHF 01/13/21 Fluticasone Propionate (Nasal) (Flonase Allergy Relief) 50 Mcg/Act Spr, 1 SPR NA DAILYP for ALLERGIES 01/13/21 Allopurinol (Allopurinol) 100 Mg Tab, 1 TAB PO DAILY for GOUT 01/13/21 Information Source: Patient, Emergency Med Personnel Mode of Arrival: EMS Severity: Moderate Timing: Days Duration: Since onset Past Medical History PAST MEDICAL HISTORY: HTN, Pt Confused Surgical History: Pt Confused Family History Family History: Pt Confused Social History Smoker: Pt Confused Alcohol: Pt Confused Drugs: Pt Confused Lives In: Pt Confused Constitutional: denies: chills, diaphoresis, fatigue, fever, malaise, sweats, weakness, others EENTM: denies: blurred vision, double vision, ear bleeding, ear discharge, ear drainage, ear pain, ear ringing, eye pain, eye redness, hearing loss, mouth pa in, mouth swelling, nasal discharge, nose bleeding, nose congestion, nose pain, photophobia, tearing, throat pain, throat swelling, voice changes, others Respiratory: denies: cough, hemoptysis, orthopnea, SOB at rest, shortness of breath, SOB with excertion, stridor, wheezing, others Cardiovascular: denies: chest pain, dizzy spells, diaphoresis, Dyspnea on exertion, edema, irregular heart beat, left arm pain, lightheadedness, palpitations, PND, syncope, others Gastrointestinal: denies: abdomen distended, abdominal pain, blood streaked bowels, constipated, diarrhea, dysphagia, difficulty swallowing, hematemesis, melena, nausea, poor appetite, poor fluid intake, rectal bleeding, rectal pain, vomiting, others Genitourinary: reports: others (Dribbling); denies: burning, dysuria, flank pain, frequency, hematuria, incontinence, penile discharge, penile sore, pain, testicle pain, testicle swelling, urgency Neurological: denies: dizziness, fainting, headache, left sided numbness, left sided weakness, numbness, paresthesia, pre-existing deficit, right sided numbness, right sided weakness, seizure, speech problems, tingling, tremors, weakness, others Musculoskeletal: denies: back pain, gout, joint pain, joint swelling, muscle pain, muscle stiffness, neck pain, others Integumetry: denies: bruises, change in color, change in hair/nails, dryness, laceration, lesions, lumps, rash, wounds, others Allergic/Immunocompromised: denies: Difficulty Healing, Frequent Infections, Hives, Itching, others Hematologic/Lymphatic: denies: anemia, blood clots, easy bleeding, easy bruising, swollen glands, others Endocrine: denies: excessive hunger, excessive sweating, excessive thirst, excessive urination, flushing, intolerance to cold, intolerance to heat, unexplained weight gain, unexplained weight loss, others Psychiatric: denies: anxiety, bipolar disorder, depression, hopeless, panic disorder, schizophrenia, sleepless, suicidal, others Physical Exam General Appearance: Moderate Distress HEENT: Normal ENT Inspection, Pharynx Normal, TMs Normal Neck: Full Range of Motion, Non-Tender, Normal, Normal Inspection Respiratory: Chest Non-Tender, Lungs Clear, No Accessory Muscle Use, No Respir atory Distress, Normal Breath Sounds Cardiovascular: No Edema, No JVD, No Murmur, No Gallop, Normal Peripheral Pulses, Regular Rate/Rhythm Breast Exam: Deferred Gastrointestinal: No Organomegaly, Non Tender, No Pulsatile Mass, Normal Bowel Sounds, Soft Genitalia: Deferred Pelvic: Deferred Rectal: Deferred Extremities: No calf tenderness, Normal capillary refill, Normal inspection, Normal range of motion, Non-tender, No pedal edema Musculoskeletal : Apperance: Normal Neurologic: Alert, tanning wheel operator II-XII nml as Tested, No Motor Deficits, Normal Affect, Normal Mood, No Sensory Deficits Cerebellar Function: NOT DONE Reflexes: NOT DONE Skin: Dry, Normal Color, Warm Peripheral Pulses: 3+ Radial (R), 3+ Radial (L) Lymphatic: No Adenopathy Was a procedure done? Was a procedure done?: No Differential Dx Considerations may include: Urinary tract infection Electrolyte imbalance X-Ray, Labs, Meds, VS Patient alert. Complaining of unable to urinate. Possibly prostate. Possible urinary tract infection. Establish intravenous access. Was given fluids pain Was given Rocephin. Sepsis due to urinary tract infection. Urinary culture. Reviewed his history. Explained to the patient. Continue monitoring. Time of 1ST Reevaluation: 09:54 Reevaluation 1ST: Unchanged Patient Education/Counseling: Diagnosis, Treatment, Prognosis Family Education/Counseling: No Family Present Departure 1 Departure Time of Disposition: 09:56 Impression: Primary Impression: Sepsis due to urinary tract infection Disposition: ADMITTED INPATIENT Admit to: Med Surg Condition: Guarded Critical Care Note Critical Care Time?: No Stability Stability form required: No Heart Score Heart Score: Heart Score Response (Comments) Value History N/A 0 EKG N/A 0 Age N/A 0 Risk Factors N/A 0 Troponin N/A 0 Total 0 ADAL ROACH MD Dec 27, 2024 09:56
[2024-12-27] MEDS: SODIUM CHLORIDE 0.9% 1,000 ML IV ONE (10:00)
[2024-12-27] MEDS: cefTRIAXone 1GM/50ML D5W 50 ML IV ONE (10:00)
[2024-12-27 10:24] LABS: Hematocrit 46.1 % (41.0-53.0); Hemoglobin 14.4 g/dL (13.5-17.5); Mean Corpuscular Hemoglobin 31.4 pg (28.0-32.0); Mean Corpuscular Volume 100.6 fL (80.0-100.0); Nucleated Red Blood Cells % 0.1 %
[2024-12-27 10:35] LABS: Potassium 4.7 mmol/L (3.5-5.1); Sodium 144 mmol/L (136-145)
[2024-12-27 10:36] LABS: Anion Gap 10 (5-15); Calcium 8.8 mg/dL (8.7-10.4); Carbon Dioxide 23 mmol/L (20-31)
[2024-12-27 10:40] LABS: Chloride 111 mmol/L (98-107)
[2024-12-27 10:41] LABS: BUN/Creatinine Ratio 13.3 (10.0-20.0); Blood Urea Nitrogen 14 mg/dL (9-23)
[2024-12-27 10:43] LABS: Glucose 125 mg/dL (74-106)
[2024-12-27 11:24] LABS: Urine Budding Yeast OCCASIONAL /hpf (None Seen); Urine Protein, UAD TRACE (Negative)
--- NOTE | 2024-12-27 14:49 | DVHHPRES ---
History of Present Illness Resident Creating Document: LIDIA GRIFFIN RESIDENT History of Present Illness This is a 79-year-old male with Alzheimer's dementia, heart failure with reduced ejection fraction, tachy-susie syndrome status post pacemaker 2020 who was sent to the ER from [facility] for the evaluation of acute urinary retention. Patient is currently altered, A&O x1, oriented to name but not place or situation. Spoke with daughter over the phone, reports that patient has a Alzheimer's dementia. Patient could not not urinate at the facility and a Gaffney could not be placed due to uncertain reasons. Patient was recently admitted in this facility on 12/10/24 for questionable sepsis with UTI and metabolic encephalopathy. Past medical condition:Alzheimer's dementia, heart failure with reduced ejection fraction, tachy-susie syndrome status post pacemaker 2020 Home medications: Allopurinol 100 mg daily, amlodipine 10 mg daily, docusate 100 mg, donepezil 5 mg, Eliquis 5 mg twice daily, finasteride 5 mg daily, insulin lispro, Lasix 20 mg p.o. daily, milk of magnesia, potassium tablet, tamsulosin, vitamins Social history: Lives in [facility] Patient seen and examined in ER, appears confused. UA shows 2 WBC, and budding yeast. Urine culture pending. Review of Systems Allergies: Coded Allergies: NO KNOWN ALLERGIES (Unverified , 01/18/21) Exam Vital Signs Vital Signs Date Time Temp Pulse Resp B/P (MAP) Pulse Ox O2 Delivery O2 Flow Rate FiO2 12/27/24 10:15 Room Air* 0 21 12/27/24 10:15 97.0 69 17 116/73 (87) 99 97.0 Exam Elderly male lying in the bed comfortably, no acute distress General: Well-built, afebrile, palor, mucosae are moist Cardiovascular: Regular S1 and S2. No murmurs, gallops or rubs. No JVD elevation. No pedal edema Respiratory: Normal B/L air entry on room air. Clear lung sounds on auscultation Abdomen: Soft, nontender, nondistended, normoactive bowel sounds, no rebound tenderness, no organomegaly, no masses Genitourinary: Deferred. Gaffney seen draining clear urine MSK/skin: Mobilizes 4 limbs. Skin is dry and warm Neurological: No motor, no sensitive deficits, normal speech. Pupils are isocoric and reactive. Psych/Mental Status: A/Ox1 Labs/Xrays Labs Test 12/27/24 11:13 12/27/24 10:12 Range/Units Urine Color Yellow Yellow Urine Clarity Clear Clear Urine pH 6.0 5.0-9.0 Urine Specific Faith 1.025 1.001-1.035 Urine Protein Trace H Negative Urine Ketones Negative Negative Urine Blood 1+ H Negative /uL Urine Nitrite Negative Negative Urine Bilirubin Negative Negative Urine Urobilinogen Normal Negative mg/dL Urine Leukocyte Esterase Negative Negative /uL Urine RBC 34 0 - 3 /hpf Urine Microscopic WBC 2 0-3 /HPF Urine Squamous Epithelial Cells Few <5 /hpf Urine Bacteria None seen None Seen /hpf Urine Mucus Few None Seen Urine Yeast (Budding) Occasional None Seen /hpf Urine Glucose Normal Normal mg/dL White Blood Count 4.3 L 4.4-10.8 10^3/uL Red Blood Count 4.58 4.5-5.90 10^6/uL Hemoglobin 14.4 13.5-17.5 g/dL Hematocrit 46.1 41.0-53.0 % Mean Corpuscular Volume 100.6 H 80.0-100.0 fL Mean Corpuscular Hemoglobin 31.4 28.0-32.0 pg Mean Corpuscular Hemoglobin Concent 31.2 L 32.0-36.0 g/dL Red Cell Distribution Width 16.3 H 11.8-14.3 % Platelet Count 121 L 140-450 10^3/uL Mean Platelet Volume 9.0 6.9-10.8 fL Neutrophils (%) (Auto) 71.6 37.0-80.0 % Lymphocytes (%) (Auto) 20.2 10.0-50.0 % Monocytes (%) (Auto) 5.9 0.0-12.0 % Eosinophils (%) (Auto) 1.7 0.0-7.0 % Basophils (%) (Auto) 0.6 0.0-2.0 % Neutrophils # (Auto) 3.1 1.6-8.6 10 ^3/uL Lymphocytes # (Auto) 0.9 0.4-5.4 10 ^3/uL Monocytes # (Auto) 0.3 0-1.3 10 ^3/uL Eosinophils # (Auto) 0.1 0-0.8 10 ^3/uL Basophils # (Auto) 0 0-0.2 10 ^3/uL Nucleated Red Blood Cells 0.1 % Sodium Level 144 136-145 mmol/L Potassium Level 4.7 3.5-5.1 mmol/L Chloride Level 111 H 98-107 mmol/L Carbon Dioxide Level 23 20-31 mmol/L Anion Gap 10 5-15 Blood Urea Nitrogen 14 9-23 mg/dL Creatinine 1.05 0.700-1.30 mg/dL Glomerular Filtration Rate Calc 71 >90 mL/min BUN/Creatinine Ratio 13.3 10.0-20.0 Serum Glucose 125 H 74-106 mg/dL Calcium Level 8.8 8.7-10.4 mg/dL SEPSIS Sepsis Screen Date sepsis recognized/suspect: Dec 27, 2024 Time Sepsis recognized/suspect: 942 Recent Procedure: No On Antibiotic Therapy: No Respiratory Rate >20: No Heart Rate >90: No Temp<36 C (96.8 F) or >38.3 C: No SBP <90 or MAP <65 mmHG: No New Acute Mental Status Change: No Is the patient on CPAP, BIPAP,: No Physician Orders Insert Gaffney Catheter QSHIFT (12/27/24 09:51) Sodium Chloride 0.9% (12/27/24 10:00) Urine Bacterial Culture (12/27/24 09:51) Vital Signs Date Time Temp Pulse Resp B/P (MAP) Pulse Ox O2 Delivery O2 Flow Rate FiO2 12/27/24 10:15 Room Air* 0 21 12/27/24 10:15 97.0 69 17 116/73 (87) 99 97.0 12/27/24 09:43 98.6 68 18 138/72 95 98.6 Laboratory Tests Test 12/27/24 10:12 White Blood Count 4.3 10^3/uL (4.4-10.8) L Assessment/Plan Assessment/Plan Metabolic encephalopathy secondary to urinary retention Likely acute urinary retention Likely acute cystitis Benign prostatic hyperplasia IV ceftriaxone daily, p.o. fluconazole daily Urine bacterial culture pending UA shows occasional yeast, 2 WBCs, 34 RBCs Continue home medication tamsulosin and finasteride Alzheimer's dementia Continue donepezil 5 mg daily Macrocytosis but no anemia Blood alcohol, folate, vitamin B12 level pending Chronic systolic heart failure-EF 20% History of tachy-susie status post pacemaker placement Hypertension Continue home medication amlodipine History of gout Continue allopurinol 100 mg daily Plan discussed with patient's daughter over the phone in which all questions have been answered Goals of care discussed with patient's daughter for 20 minutes, full code status Case discussed with Dr. Fithc I was physically present for the whitehead portions of the service provided to patient by THE RESIDENT. I have reviewed the documentation, discussed the case with res ident and agree with the resident's documentation except as noted. Also the patient's clinical case was discussed with the patient's nurse. This medical document was created using an electronic medical record system with computerized dictation system. Although this document has been carefully reviewed, there might still be some phonetic and typographical errors. These areas are purely typographical due to imperfections of the software programs, and do not reflect any compromise in the patient's medical care. Late signature. Plan discussed with: Daughter, Other (Nurse) Date of Service: Dec 27, 2024 Billing Provider: WALI FITCH MD Common Visit Codes: 10057-LVIRYNZ INP/OBS CARE (HIGH) Secondary Visit Codes: 43313-[id number] CARE PLAN 30 MINUTES (20 minutes) LIDIA GRIFFIN RESIDENT Dec 27, 2024 14:49 WALI FITCH MD Dec 29, 2024 06:02
[2024-12-27] MEDS ORDERED: cefTRIAXone SOD 500 MG VL IM ONE (16:15)
[2024-12-27] MEDS: ALLOPURINOL 100 MG TAB PO ONE (18:08)
[2024-12-27] MEDS: TAMSULOSIN HYDROCHLORIDE 0.4 MG CAP PO SCH (18:08)
[2024-12-27] MEDS: FINASTERIDE 5 MG TAB PO ONE (18:09)
[2024-12-27] MEDS: FLUCONAZOLE 100 MG TAB PO ONE (18:09)
[2024-12-27] MEDS: PANTOPRAZOLE 40 MG TAB PO ONE (18:09)
[2024-12-27] MEDS: DONEPEZIL HYDROCHLORIDE 5 MG TAB PO SCH (22:00)
[2024-12-27 23:14] VITALS: BP 111/66; PULSE 77; RESP 18; TEMP 97.9; O2SAT 98
[2024-12-28] VITALS (7 sets, daily range): BP systolic 87–114; BP diastolic 57–79; PULSE 70–74; RESP 11–20; TEMP 98.4–98.9; O2SAT 95–100
[2024-12-28] MEDS: PANTOPRAZOLE 40 MG TAB PO SCH (06:00)
[2024-12-28] MEDS: cefTRIAXone 1GM/50ML D5W 50 ML IV SCH (10:27)
[2024-12-28] MEDS: FLUCONAZOLE 100 MG TAB PO SCH (10:27)
[2024-12-28] MEDS: FINASTERIDE 5 MG TAB PO SCH (10:27)
[2024-12-28] MEDS: ALLOPURINOL 100 MG TAB PO SCH (10:28)
[2024-12-28] MEDS: ENOXAPARIN SOD 40 MG/0.4 ML SYRINGE SC SCH (10:28)
--- NOTE | 2024-12-28 15:01 | DVHPNRES ---
Progress Note Date Seen: Dec 28, 2024 Resident Creating Document: MADISON ISIDRO RESIDENT Medical Necessity Reason Pt with a Central, PICC or Fol: No Subjective Review of Systems This is a 79-year-old male with Alzheimer's dementia, heart failure with reduced ejection fraction, tachy-susie syndrome status post pacemaker 2020 who was sent to the ER from [facility] for the evaluation of acute urinary retention. Patient is currently altered, A&O x1, oriented to name but not place or situation. Spoke with daughter over the phone, reports that patient has a Alzheimer's dementia. Patient could not not urinate at the facility and a Gaffney could not be placed due to uncertain reasons. PMH: Alzheimer's dementia, heart failure with reduced ejection fraction, tachy- susie syndrome status post pacemaker 2020 Home medications: Allopurinol 100 mg daily, amlodipine 10 mg daily, docusate 100 mg, donepezil 5 mg, Eliquis 5 mg twice daily, finasteride 5 mg daily, insulin lispro, Lasix 20 mg p.o. daily, milk of magnesia, potassium tablet, tamsulosin, vitamins Social history: Lives in [facility] ROS: Patient seen and examined in ER, appears confused. He is not oriented to place person or time. He does know his name though. Urine analysis showed some budding yeast, 2 WBC, 34 RBC. We have sent urine cultures which are pending. We have given the patient IV fluids, IV ceftriaxone daily, p.o. fluconazole daily. We are continuing tamsulosin and finasteride. We have ordered a bladder scan. B12 and folate levels for macrocytosis but no anemia, pending. Multivitamins have been given. Objective vital signs Vital Sign Date Time Temp Pulse Resp B/P (MAP) Pulse Ox O2 Delivery O2 Flow Rate FiO2 12/28/24 12:00 73 12/28/24 06:51 100/64 (76) 12/28/24 04:54 19 96 12/27/24 23:14 97.9 97.9 12/27/24 10:15 Room Air* 0 21 medications Current Medications Medications Dose Ordered Sig/Júnior Route Start Time Stop Time Status Last Admin Dose Admin Ceftriaxone Sodium 50 ml @ 100 mls/hr DAILY@09 IV 12/28/24 09:00 12/28/24 10:27 100 MLS/HR Tamsulosin HCl 0.4 mg QPM PO 12/27/24 18:00 12/27/24 18:08 0.4 MG Fluconazole 200 mg DAILY PO 12/28/24 10:00 12/28/24 10:27 200 MG Finasteride 5 mg DAILY PO 12/28/24 10:00 12/28/24 10:27 5 MG Donepezil HCl 5 mg HS PO 12/27/24 22:00 Allopurinol 100 mg DAILY PO 12/28/24 10:00 12/28/24 10:28 100 MG Pantoprazole Sodium 40 mg DAILY@0600 PO 12/28/24 06:00 Enoxaparin Sodium 40 mg DAILY SC 12/28/24 10:00 12/28/24 10:28 40 MG Multivitamins 1 tab DAILY PO 12/29/24 10:00 Examination General: Well-built, afebrile, palor, mucosae are moist, confused, not oriented to person, place or time Cardiovascular: Regular S1 and S2. No murmurs, gallops or rubs. No JVD elevation. No pedal edema Respiratory: Normal B/L air entry on room air. Clear lung sounds on auscultation Abdomen: Soft, nontender, nondistended, normoactive bowel sounds, no rebound tenderness, no organomegaly, no masses, Tenderness in the suprapubic region Genitourinary: Deferred. Gaffney seen draining clear urine MSK/skin: Mobilizes 4 limbs. Skin is dry and warm Neurological: No motor, no sensitive deficits, normal speech. Pupils are isocoric and reactive. Psych/Mental Status: A/Ox1 laboratory and microbiology Laboratory Tests 12/27/24 10:12 Test 12/27/24 10:12 Range/Units Serum Glucose 125 H 74-106 mg/dL Microbiology Date/Time Source Procedure Growth Status 12/27/24 11:13 Urine - Gaffney Port Urine Culture - Preliminary Resulted Labs and/or images reviewed: Labs reviewed by me, Image(s) reviewed by me Problem List/Assessment/Plan Problem List/Assessment/Plan #Acute complicated cystitis #Likely acute urinary retention #Benign prostatic hyperplasia -UA shows 2 WBC, and budding yeast. Urine culture pending. -IV ceftriaxone daily, p.o. fluconazole daily -Urine bacterial culture pending -UA shows occasional yeast, 2 WBCs, 34 RBCs -Continue home medication tamsulosin and finasteride -bladder scan #Alzheimer's dementia -Continue donepezil 5 mg daily #Macrocytosis but no anemia -Blood alcohol- normal, folate, vitamin B12 level pending #Chronic systolic heart failure-EF 20% -History of tachy-susie status post pacemaker placement #Hypertension -Continue home medication amlodipine #History of gout -Continue allopurinol 100 mg daily GI prophylaxis: Protonix 40 mg p.o. daily DVT prophylaxis: Lovenox 40 mg subcutaneous daily Diet: cardiac diet Goals of care discussed with the patient for more than 27 minutes: Full code status Case discussed with Dr. Villaseñor, patient and nurse. Plan discussed with: Patient, Other (rn) My Orders My Orders Orders - MADISON ISIDRO Procedure Category Date Status Time Bladder Scan ED NURSING 12/28/24 Transmitted MADISON ISIDRO Dec 28, 2024 15:01
[2024-12-28] MEDS: MULTIPLE VITAMIN TAB PO ONE ×2 (15:12→18:37)
[2024-12-29 05:00] VITALS: BP 115/83; PULSE 51; RESP 18; TEMP 98.4; O2SAT 97
[2024-12-29 08:00] VITALS: RESP 16; O2SAT 97
[2024-12-29 08:45] VITALS: BP 107/80; PULSE 70; RESP 18; TEMP 98.4; O2SAT 99
[2024-12-29] MEDS ORDERED: MULTIPLE VITAMIN TAB PO SCH (10:00)
[2024-12-29] MEDS: MULTIPLE VITAMIN TAB PO SCH (11:23)
--- NOTE | 2024-12-29 11:43 | DVHDSRES ---
Discharge Summary Date of Admission Resident Creating Document: MADISON ISIDRO RESIDENT Dec 27, 2024 at 14:48 Date of Discharge: Dec 29, 2024 Admitting Diagnosis #Acute complicated cystitis Labs/Diagnostic Data: Laboratory Results Test 12/27/24 11:13 12/27/24 10:12 Urine Color Yellow (Yellow) Urine Clarity Clear (Clear) Urine pH 6.0 (5.0-9.0) Urine Specific [place] 1.025 (1.001-1.035) Urine Protein Trace (Negative) Urine Ketones Negative (Negative) Urine Blood 1+ /uL (Negative) Urine Nitrite Negative (Negative) Urine Bilirubin Negative (Negative) Urine Urobilinogen Normal mg/dL (Negative) Urine Leukocyte Esterase Negative /uL (Negative) Urine RBC 34 /hpf (0 - 3) Urine Microscopic WBC 2 /HPF (0-3) Urine Squamous Epithelial Cells Few /hpf (<5) Urine Bacteria None seen /hpf (None Seen) Urine Mucus Few (None Seen) Urine Yeast (Budding) Occasional /hpf (None Urine Glucose Normal mg/dL (Normal) White Blood Count 4.3 10^3/uL (4.4-10.8) Red Blood Count 4.58 10^6/uL (4.5-5.90) Hemoglobin 14.4 g/dL (13.5-17.5) Hematocrit 46.1 % (41.0-53.0) Mean Corpuscular Volume 100.6 fL (80.0-100.0) Mean Corpuscular Hemoglobin 31.4 pg (28.0-32.0) Mean Corpuscular Hemoglobin Concent 31.2 g/dL (32.0-36.0) Red Cell Distribution Width 16.3 % (11.8-14.3) Platelet Count 121 10^3/uL (140-450) Mean Platelet Volume 9.0 fL (6.9-10.8) Neutrophils (%) (Auto) 71.6 % (37.0-80.0) Lymphocytes (%) (Auto) 20.2 % (10.0-50.0) Monocytes (%) (Auto) 5.9 % (0.0-12.0) Eosinophils (%) (Auto) 1.7 % (0.0-7.0) Basophils (%) (Auto) 0.6 % (0.0-2.0) Neutrophils # (Auto) 3.1 10 ^3/uL (1.6-8.6) Lymphocytes # (Auto) 0.9 10 ^3/uL (0.4-5.4) Monocytes # (Auto) 0.3 10 ^3/uL (0-1.3) Eosinophils # (Auto) 0.1 10 ^3/uL (0-0.8) Basophils # (Auto) 0 10 ^3/uL (0-0.2) Nucleated Red Blood Cells 0.1 % Sodium Level 144 mmol/L (136-145) Potassium Level 4.7 mmol/L (3.5-5.1) Chloride Level 111 mmol/L (98-107) Carbon Dioxide Level 23 mmol/L (20-31) Anion Gap 10 (5-15) Blood Urea Nitrogen 14 mg/dL (9-23) Creatinine 1.05 mg/dL (0.700-1.30) Glomerular Filtration Rate Calc 71 mL/min (>90) BUN/Creatinine Ratio 13.3 (10.0-20.0) Serum Glucose 125 mg/dL (74-106) Calcium Level 8.8 mg/dL (8.7-10.4) Plasma/Serum Blood Alcohol < 3.0 mg/dL (<10) Other Laboratory Tests 12/27/24 10:12 Brief Hx & Hospital Course: 79-year-old male with Alzheimer's dementia, heart failure with reduced ejection fraction, tachy-susie syndrome status post pacemaker 2020 was sent to the ER from [facility] for the evaluation of acute urinary retention. Patient is currently altered, A&O x1, oriented to name but not place or situation. Spoke with daughter over the phone, reports that patient has a Alzheimer's dementia. Patient could not urinate at the facility and a Gaffney could not be placed due to uncertain reasons. PMH: Alzheimer's dementia, heart failure with reduced ejection fraction, tachy- susie syndrome status post pacemaker 2020 Home medications: Allopurinol 100 mg daily, amlodipine 10 mg daily, docusate 100 mg, donepezil 5 mg, Eliquis 5 mg twice daily, finasteride 5 mg daily, insulin lispro, Lasix 20 mg p.o. daily, milk of magnesia, potassium tablet, tamsulosin, vitamins Social history: Lives in [facility] Brief history of hospitalization: Patient came in with acute complicated cystitis, likely acute urinary retention, BPH. we were told that the nursing care facility was unable to put a Gaffney's in him. Gaffney's catheter was placed in the emergency room. Urine analysis showed 2 WBC and budding yeast. We started the patient on IV ceftriaxone, oral fluconazole daily and Continued his home medication of tamsulosin and finasteride. We sent out for urine cultures which showed no growth today 12/29/2024. For patient's Alzheimer's dementia we continued donepezil 5 mg daily. Patient had macrocytosis but no anemia so we checked for blood alcohol levels which were normal, folate and B12 levels are still pending , to be followed up in discharge Clinic. For chronic systolic heart failure with ejection fraction 20 % and history of tachy-susie status post pacemaker placement we continue to monitor him. We continued patient's hypertensive medication amlodipine as well. For history of gout we continued allopurinol 100 mg daily. We gave him multivitamins as well during his hospitalization. Patient had suprapubic tenderness on examination on the day he was brought to the ER but now has no pain. He is passing adequate amount of urine in his now stable for discharge. General: Well-built, afebrile, palor, mucosae are moist, confused, not oriented to person, place or time Cardiovascular: Regular S1 and S2. No murmurs, gallops or rubs. No JVD elevation. No pedal edema Respiratory: Normal B/L air entry on room air. Clear lung sounds on auscultation Abdomen: Soft, nontender, nondistended, normoactive bowel sounds, no rebound tenderness, no organomegaly, no masses, Tenderness in the suprapubic region Genitourinary: Deferred. Gaffney seen draining clear urine MSK/skin: Mobilizes 4 limbs. Skin is dry and warm Neurological: No motor, no sensitive deficits, normal speech. Pupils are isocoric and reactive. Psych/Mental Status: A/Ox1 Instructions: Continue home medication Follow up with PCP in 7 days Follow up in discharge clinic within 7 days Condition at Discharge: Stable Final Diagnosis/Problems List #Likely metabolic encephalopathy secondary to acute urinary retention #Acute complicated cystitis #Likely acute urinary retention #Benign prostatic hyperplasia #Alzheimer's dementia #Macrocytosis but no anemia #Chronic systolic heart failure-EF 20% #Hypertension #History of gout Discharge Disposition: Acute Care Facility Discharge Instruct/Medications Diet: Consistent carbohydrate, Cardiac 2g Na,low cholest Activity: No Restrictions, As Tolerated Follow Up/Referral: folowup with pcp 1 week Follow up with DC clinic within 1 week Medications: continue home meds Scheduled Allopurinol (Allopurinol), 1 TAB PO DAILY, (Reported) Amlodipine Besylate (Amlodipine Besylate), 1 TAB PO DAILY, (Reported) Apixaban Base (Eliquis), 1 TAB PO BID, (Reported) Donepezil Hydrochloride (Donepezil Hcl), 1 TAB PO DAILY, (Reported) Furosemide (Furosemide), 1 TAB PO QAM, (Reported) Potassium Chloride (Klor-Con 8), 1 TAB PO QAM, (Reported) Tamsulosin Hcl (Tamsulosin Hcl), 1 CAP PO QPM, (Reported) Discharge Statement: "Patient was advised to return to the ER or call 911 if any headaches, dizziness, shortness of breath, chest pain, abdominal pain, bleeding, fevers, or worsening of medical condition. Patient was counseled about treatment plan, medications, possible side effects, patientverbalized understanding. All questions were answered to the best of my ability. This discharge took greater then 30 minutes in planning, reviewing documentation, counseling the patient, and discussing with other team members." ASSESSMENT ASSESSMENT Assessment #Acute complicated cystitis MADISON ISIDRO RESIDENT Dec 29, 2024 11:43
[2024-12-29 13:00] VITALS: BP 105/73; PULSE 68; RESP 16; TEMP 98.3; O2SAT 99
[2024-12-29] MEDS: SODIUM CHLORIDE 0.9% 1,000 ML IV ONE (16:10)
[2024-12-29 16:45] VITALS: BP 108/72; PULSE 67; RESP 18; TEMP 98.8; O2SAT 98
[2024-12-29 19:37] VITALS: BP 100/73; PULSE 68; RESP 16; TEMP 37.1; O2SAT 99
== END 2024-12-29 20:50 | DRG 725 ==
LOC: EDBD 09:40 → ER 09:40 → OVERFLOW 14:48 → EAST 12-28 22:35
PROVIDERS: ADMIT Student in an Organized Health Care Education/Training Program; ATTEND Student in an Organized Health Care Education/Training Program
DX: N40.1 Benign prostatic hyperplasia with lower urinary tract symptoms (principal); G93.41 Metabolic encephalopathy; N30.00 Acute cystitis without hematuria; I50.22 Chronic systolic (congestive) heart failure; R33.8 Other retention of urine; G30.9 Alzheimer's disease, unspecified; F02.80 Dementia in other diseases classified elsewhere, unspecified severity, without behavioral disturbance, psychotic disturbance, mood disturbance, and anxiety; I11.0 Hypertensive heart disease with heart failure; M10.9 Gout, unspecified; Z79.01 Long term (current) use of anticoagulants; Z95.0 Presence of cardiac pacemaker; Z79.899 Other long term (current) drug therapy
CPT/HCPCS: 36415; 80048; 80320; 81001; 82607; 82746; 85025; 87081; 87086; G0378